=== PATIENT | female | born 1935 | race African-American/Black ===

== ENCOUNTER 2018-10-20 08:11 | Inpatient (IN) | payer OTHER, MEDICAID ==
[~2018-10-20] VITALS: Ht 152.4 cm; Wt 48.5 kg
[2018-10-20 08:11] VITALS: BP_SYST 184
[~2018-10-20 08:11] MED LIST: ALBU17AE26 IH; IPRA30SP NS; LISI-600 PO; VERA240T16 PO
[2018-10-20] MEDS ORDERED: IPRATROPIUM/ALBUTEROL SULFATE 3 ML AMPUL.NEB (DUONEB) INH ONE (08:15)
[2018-10-20] MEDS ORDERED: methylPREDNISolone SOD SUCC/PF 62.5 MG/ML VIAL IVP ONE ×2 (08:15→19:00)
[2018-10-20 08:46] LABS: BASOPHILS % (AUTO) 0.6 % (0.0-2.0); EOSINOPHILS # (AUTO) 0.1 K/uL (0.0-0.4); EOSINOPHILS % (AUTO) 2.3 % (0.0-4.0); HEMATOCRIT 45.2 % (36-48); HEMOGLOBIN 14.4 g/dL (12.0-16.0); LYMPHOCYTES # (AUTO) 1.5 K/uL (1.0-5.5); LYMPHOCYTES % (AUTO) 22.7 % (20.5-51.5); MEAN CORPUSCULAR HEMOGLOBIN 31 pg (27-31); MEAN CORPUSCULAR HGB CONC 32 % (32-36); MEAN CORPUSCULAR VOLUME 96 fL (79.0-98.0); MONOCYTES # (AUTO) 0.4 K/uL (0.0-1.0); MONOCYTES % (AUTO) 6.7 % (1.7-9.3); NEUTROPHILS # (AUTO) 4.3 K/uL (1.8-7.7); NEUTROPHILS % (AUTO) 67.7 % (40.0-70.0); PLATELET COUNT (AUTO) 197 K/uL (130-430); RED BLOOD CELL COUNT(AUTO) 4.71 MIL/uL (4.2-6.2); RED CELL DISTRIBUTION WIDTH 13.8 % (9.0-15.0); WHITE BLOOD COUNT (AUTO) 6.4 K/uL (4.8-10.8)
[2018-10-20 08:59] LABS: ANION GAP 5 (5-15); CALCIUM 9.5 mg/dL (8.4-11.0); CHLORIDE 107 mmol/L (98-107); GLUCOSE 111 mg/dL (70-99); POTASSIUM 3.7 mmol/L (3.5-5.1); SODIUM SERUM 141 mmol/L (136-145); UREA NITROGEN, BLOOD 19 mg/dL (8-21)
[2018-10-20 09:04] LABS: ALANINE AMINOTRANSFERASE 25 U/L (12-78); ALBUMIN 3.2 g/dL (3.4-4.8); ASPARTATE AMINOTRANSFERASE 17 U/L (10-37); TOTAL BILIRUBIN 0.3 mg/dL (0.0-1.0)
[2018-10-20] MEDS ORDERED: IPRA4AER INH (09:05)
[2018-10-20] MEDS ORDERED: KETOROLAC TROMETHAMINE 15 MG VIAL IVP ONE (10:00)
[2018-10-20 11:42] VITALS: BP_SYST 125
[2018-10-20 11:45] VITALS: BP_SYST 125
[2018-10-20 15:53] VITALS: BP_SYST 144
[2018-10-20 19:00] VITALS: BP_SYST 144
[2018-10-20] MEDS ORDERED: IPRATROPIUM BROM 0.5 MG/2.5 ML VIAL.NEB (ATROVENT) INH PRN (19:00)
[2018-10-20] MEDS ORDERED: ALBUTEROL SULFATE 0.083% 2.5 MG/3 ML VIAL.NEB INH PRN (19:00)
[2018-10-20] MEDS: cefTRIAXone 1 GM in D5W 50 ML IV SCH (19:51)
[2018-10-20] MEDS: ALBUTEROL SULFATE 0.083% 2.5 MG/3 ML VIAL.NEB INH SCH (19:53)
[2018-10-20] MEDS: IPRATROPIUM BROM 0.5 MG/2.5 ML VIAL.NEB (ATROVENT) INH SCH (19:54)
[2018-10-20 20:30] VITALS: BP_SYST 141
[2018-10-20] MEDS: AZITHROMYCIN 500 MG in NS 250 ML IV SCH (21:28)
[2018-10-21] MEDS: ALBUTEROL SULFATE 0.083% 2.5 MG/3 ML VIAL.NEB INH SCH ×4 (01:18→20:09)
[2018-10-21] MEDS: IPRATROPIUM BROM 0.5 MG/2.5 ML VIAL.NEB (ATROVENT) INH SCH ×4 (01:18→20:09)
[2018-10-21] MEDS ORDERED: ACETAMINOPHEN 325 MG TABLET PO PRN (01:30)
[2018-10-21] MEDS: cloNIDine HCL 0.1 MG TABLET PO PRN (01:45)
[2018-10-21] MEDS: methylPREDNISolone SOD SUCC/PF 62.5 MG/ML VIAL IVP SCH ×3 (05:29→21:02)
[2018-10-21 05:30] VITALS: BP_SYST 142
[2018-10-21] MEDS: VERAPAMIL HCL 120 MG TABLET.SA PO SCH (09:13)
[2018-10-21] MEDS: LISINOPRIL 20 MG TABLET PO SCH (09:13)
[2018-10-21 10:24] VITALS: BP_SYST 140
[2018-10-21] MEDS ORDERED: ASPIRIN 81 MG TABLET(ECOTRIN) PO ONE (11:30)
[2018-10-21] MEDS ORDERED: NITROGLYCERIN 0.4 MG TAB.SUBL SL PRN (11:30)
[2018-10-21 11:32] VITALS: BP_SYST 139
[2018-10-21 16:05] VITALS: BP_SYST 139
[2018-10-21 20:00] VITALS: BP_SYST 144
[2018-10-21] MEDS: cefTRIAXone 1 GM in D5W 50 ML IV SCH (20:05)
[2018-10-21] MEDS: AZITHROMYCIN 500 MG in NS 250 ML IV SCH (21:01)
[2018-10-21] MEDS: DIAZEPAM 5 MG TABLET (VALIUM) PO SCH (21:02)
[2018-10-22] MEDS: ALBUTEROL SULFATE 0.083% 2.5 MG/3 ML VIAL.NEB INH SCH ×4 (01:30→20:33)
[2018-10-22] MEDS: IPRATROPIUM BROM 0.5 MG/2.5 ML VIAL.NEB (ATROVENT) INH SCH ×4 (01:30→20:34)
[2018-10-22 01:31] VITALS: BP_SYST 151
[2018-10-22] MEDS: methylPREDNISolone SOD SUCC/PF 62.5 MG/ML VIAL IVP SCH ×3 (05:39→20:47)
[2018-10-22 08:20] VITALS: BP_SYST 157
[2018-10-22] MEDS: ASPIRIN 81 MG TAB.CHEW PO SCH (09:30)
[2018-10-22] MEDS: DIAZEPAM 5 MG TABLET (VALIUM) PO SCH ×2 (09:30→20:47)
[2018-10-22] MEDS: LISINOPRIL 20 MG TABLET PO SCH (09:35)
[2018-10-22] MEDS: VERAPAMIL HCL 120 MG TABLET.SA PO SCH (09:37)
[2018-10-22] MEDS: guaiFENesin/DEXTROMETHORPHAN 10 ML UDC PO PRN (12:05)
[2018-10-22] MEDS: traMADol HCL HCL 50 MG TABLET (ULTRAM) PO PRN (12:06)
[2018-10-22 12:15] VITALS: BP_SYST 121
[2018-10-22] MEDS ORDERED: ENOXAPARIN SODIUM 40 MG/0.4 ML SYRINGE SUBCUT ONE (14:00)
[2018-10-22 16:15] VITALS: BP_SYST 135
[2018-10-22 19:25] VITALS: BP_SYST 149
[2018-10-22] MEDS: cefTRIAXone 1 GM in D5W 50 ML IV SCH (20:47)
[2018-10-22] MEDS: AZITHROMYCIN 500 MG in NS 250 ML IV SCH (22:15)
[2018-10-23 00:36] VITALS: BP_SYST 131
[2018-10-23 06:01] LABS: BASOPHILS % (AUTO) 0.1 % (0.0-2.0); HEMATOCRIT 40.8 % (36-48); LYMPHOCYTES # (AUTO) 0.3 K/uL (1.0-5.5); MEAN CORPUSCULAR HEMOGLOBIN 31 pg (27-31); MEAN CORPUSCULAR HGB CONC 32 % (32-36); MEAN CORPUSCULAR VOLUME 96 fL (79.0-98.0); MONOCYTES # (AUTO) 0.1 K/uL (0.0-1.0); MONOCYTES % (AUTO) 0.8 % (1.7-9.3); NEUTROPHILS # (AUTO) 6.8 K/uL (1.8-7.7); NEUTROPHILS % (AUTO) 95.1 % (40.0-70.0); PLATELET COUNT (AUTO) 152 K/uL (130-430); RED BLOOD CELL COUNT(AUTO) 4.25 MIL/uL (4.2-6.2); WHITE BLOOD COUNT (AUTO) 7.1 K/uL (4.8-10.8)
[2018-10-23 06:43] LABS: ALANINE AMINOTRANSFERASE 19 U/L (12-78); ALBUMIN 2.4 g/dL (3.4-4.8); ANION GAP 6 (5-15); ASPARTATE AMINOTRANSFERASE 8 U/L (10-37); CALCIUM 8.7 mg/dL (8.4-11.0); CHLORIDE 106 mmol/L (98-107); CREATININE 0.66 mg/dL (0.55-1.30); GLUCOSE 193 mg/dL (70-99); POTASSIUM 4.7 mmol/L (3.5-5.1); SODIUM SERUM 141 mmol/L (136-145); TOTAL BILIRUBIN 0.2 mg/dL (0.0-1.0); UREA NITROGEN, BLOOD 30 mg/dL (8-21)
[2018-10-23 07:50] LABS: CHOLESTEROL 184 mg/dL (<200); TRIGLYCERIDES 48 mg/dL (30-150)
[2018-10-23 07:51] LABS: HDL CHOLESTEROL 91 mg/dL (>55); LDL CHOLESTEROL 71 mg/dL (<100)
[2018-10-23] MEDS: methylPREDNISolone SOD SUCC/PF 62.5 MG/ML VIAL IVP SCH ×2 (08:57→21:22)
[2018-10-23] MEDS: ENOXAPARIN SODIUM 40 MG/0.4 ML SYRINGE SUBCUT SCH (08:59)
[2018-10-23] MEDS: DIAZEPAM 5 MG TABLET (VALIUM) PO SCH ×2 (08:59→21:23)
[2018-10-23] MEDS: ASPIRIN 81 MG TAB.CHEW PO SCH (08:59)
[2018-10-23] MEDS: LISINOPRIL 20 MG TABLET PO SCH (09:00)
[2018-10-23] MEDS: VERAPAMIL HCL 120 MG TABLET.SA PO SCH (09:02)
[2018-10-23 09:08] VITALS: BP_SYST 158
[2018-10-23 11:27] VITALS: BP_SYST 132
[2018-10-23] MEDS: guaiFENesin/DEXTROMETHORPHAN 10 ML UDC PO PRN (12:46)
[2018-10-23 15:24] VITALS: BP_SYST 127
[2018-10-23] MEDS: ALBUTEROL SULFATE 0.083% 2.5 MG/3 ML VIAL.NEB INH SCH (18:55)
[2018-10-23] MEDS: IPRATROPIUM BROM 0.5 MG/2.5 ML VIAL.NEB (ATROVENT) INH SCH (18:55)
[2018-10-23 19:00] VITALS: BP_SYST 147
[2018-10-23 20:00] VITALS: BP_SYST 147
[2018-10-23] MEDS: cefTRIAXone 1 GM in D5W 50 ML IV SCH (21:20)
[2018-10-23] MEDS: AZITHROMYCIN 500 MG in NS 250 ML IV SCH (21:22)
[2018-10-24] MEDS: traMADol HCL HCL 50 MG TABLET (ULTRAM) PO PRN
[2018-10-24 00:42] VITALS: BP_SYST 133
[2018-10-24] MEDS: IPRATROPIUM BROM 0.5 MG/2.5 ML VIAL.NEB (ATROVENT) INH SCH ×3 (00:52→14:26)
[2018-10-24] MEDS: ALBUTEROL SULFATE 0.083% 2.5 MG/3 ML VIAL.NEB INH SCH ×3 (00:52→14:26)
[2018-10-24 08:00] VITALS: BP_SYST 184
[2018-10-24] MEDS: ASPIRIN 81 MG TAB.CHEW PO SCH (09:04)
[2018-10-24] MEDS: methylPREDNISolone SOD SUCC/PF 62.5 MG/ML VIAL IVP SCH (09:04)
[2018-10-24] MEDS: VERAPAMIL HCL 120 MG TABLET.SA PO SCH (09:04)
[2018-10-24] MEDS: cloNIDine HCL 0.1 MG TABLET PO PRN (09:05)
[2018-10-24] MEDS: LISINOPRIL 20 MG TABLET PO SCH (09:05)
[2018-10-24] MEDS: DIAZEPAM 5 MG TABLET (VALIUM) PO SCH (09:05)
[2018-10-24] MEDS: ENOXAPARIN SODIUM 40 MG/0.4 ML SYRINGE SUBCUT SCH (09:12)
[2018-10-24 10:40] VITALS: BP_SYST 138
[2018-10-24 11:27] VITALS: BP_SYST 112
[2018-10-24 14:13] VITALS: BP_SYST 135
[2018-10-24 16:00] VITALS: BP_SYST 131
[2018-10-24] MEDS ORDERED: PREDNISONE 20 MG TABLET PO SCH (21:00)
== END 2018-10-24 16:40 | DRG 189 ==
LOC: SED 08:11 → SMU 10:40
PROVIDERS: ADMIT Internal Medicine Hospice and Palliative Medicine; ATTEND Internal Medicine Hospice and Palliative Medicine
DX: J96.02 Acute respiratory failure with hypercapnia (principal); J44.1 Chronic obstructive pulmonary disease with (acute) exacerbation; E44.0 Moderate protein-calorie malnutrition; I11.0 Hypertensive heart disease with heart failure; F41.9 Anxiety disorder, unspecified; I50.9 Heart failure, unspecified; F31.9 Bipolar disorder, unspecified; G89.4 Chronic pain syndrome; F17.210 Nicotine dependence, cigarettes, uncomplicated; T59.811A Toxic effect of smoke, accidental (unintentional), initial encounter; J70.5 Respiratory conditions due to smoke inhalation; Y92.89 Other specified places as the place of occurrence of the external cause; Z86.73 Personal history of transient ischemic attack (TIA), and cerebral infarction without residual deficits; Z90.710 Acquired absence of both cervix and uterus; Z88.5 Allergy status to narcotic agent; Z79.899 Other long term (current) drug therapy; Z68.20 Body mass index [BMI] 20.0-20.9, adult
CPT/HCPCS: 36415; 36600; 71045; 80053; 80061; 82550-TC; 82803-TC; 84484; 85025; 87081; 93005; 94640; 94760; 96374; 96375; 97110-GP; 97530-GP; 99291; J0456; J0696; J1650; J1885; J2930; J7050; J7060; J7613; J7620

== ENCOUNTER 2018-10-30 17:07 | Inpatient (IN) | payer OTHER, MEDICAID ==
[~2018-10-30] VITALS: Ht 149.9 cm; Wt 53.5 kg
[~2018-10-30 17:07] MED LIST changes: +IPRA4AER INH
[2018-10-30 17:13] VITALS: BP_SYST 132
[2018-10-30] MEDS ORDERED: ASPIRIN 81 MG TAB.CHEW PO ONE (17:30)
[2018-10-30 17:52] LABS: BASOPHILS % (AUTO) 0.2 % (0.0-2.0); HEMATOCRIT 41.9 % (36-48); HEMOGLOBIN 13.3 g/dL (12.0-16.0); LYMPHOCYTES # (AUTO) 0.9 K/uL (1.0-5.5); LYMPHOCYTES % (AUTO) 8.8 % (20.5-51.5); MEAN CORPUSCULAR HEMOGLOBIN 30 pg (27-31); MEAN CORPUSCULAR HGB CONC 32 % (32-36); MEAN CORPUSCULAR VOLUME 95 fL (79.0-98.0); MONOCYTES # (AUTO) 0.6 K/uL (0.0-1.0); MONOCYTES % (AUTO) 5.7 % (1.7-9.3); NEUTROPHILS # (AUTO) 8.6 K/uL (1.8-7.7); NEUTROPHILS % (AUTO) 85.3 % (40.0-70.0); PLATELET COUNT (AUTO) 235 K/uL (130-430); RED BLOOD CELL COUNT(AUTO) 4.39 MIL/uL (4.2-6.2); WHITE BLOOD COUNT (AUTO) 10.1 K/uL (4.8-10.8)
[2018-10-30 17:59] LABS: ANION GAP 4 (5-15); CALCIUM 9.3 mg/dL (8.4-11.0); CHLORIDE 100 mmol/L (98-107); CREATININE 0.69 mg/dL (0.55-1.30); GLUCOSE 142 mg/dL (70-99); POTASSIUM 4.8 mmol/L (3.5-5.1); SODIUM SERUM 135 mmol/L (136-145); UREA NITROGEN, BLOOD 28 mg/dL (8-21)
[2018-10-30 18:07] LABS: ALANINE AMINOTRANSFERASE 32 U/L (12-78); ALBUMIN 2.7 g/dL (3.4-4.8); ASPARTATE AMINOTRANSFERASE 9 U/L (10-37); TOTAL BILIRUBIN 0.2 mg/dL (0.0-1.0)
[2018-10-30] MEDS ORDERED: IPRATROPIUM/ALBUTEROL SULFATE 3 ML AMPUL.NEB (DUONEB) INH ONE (20:00)
[2018-10-30] MEDS ORDERED: DIAZ10TA PO (20:24)
[2018-10-30 21:09] VITALS: BP_SYST 147
[2018-10-30 21:30] VITALS: BP_SYST 147
[2018-10-30] MEDS ORDERED: ONDANSETRON HCL 4 MG/2 ML VIAL IVP PRN (21:30)
[2018-10-30] MEDS ORDERED: ALBUTEROL SULFATE 0.083% 2.5 MG/3 ML VIAL.NEB INH PRN (21:30)
[2018-10-30] MEDS ORDERED: ACETAMINOPHEN 325 MG TABLET PO PRN (21:30)
[2018-10-31 00:49] VITALS: BP_SYST 163
[2018-10-31 06:23] LABS: BASOPHILS % (AUTO) 0.1 % (0.0-2.0); EOSINOPHILS % (AUTO) 0.5 % (0.0-4.0); HEMOGLOBIN 13.3 g/dL (12.0-16.0); LYMPHOCYTES % (AUTO) 24.8 % (20.5-51.5); MEAN CORPUSCULAR HEMOGLOBIN 31 pg (27-31); MEAN CORPUSCULAR HGB CONC 32 % (32-36); MEAN CORPUSCULAR VOLUME 96 fL (79.0-98.0); MONOCYTES # (AUTO) 0.7 K/uL (0.0-1.0); MONOCYTES % (AUTO) 8.6 % (1.7-9.3); NEUTROPHILS # (AUTO) 5.3 K/uL (1.8-7.7); PLATELET COUNT (AUTO) 225 K/uL (130-430); RED BLOOD CELL COUNT(AUTO) 4.35 MIL/uL (4.2-6.2); RED CELL DISTRIBUTION WIDTH 14.3 % (9.0-15.0)
[2018-10-31 06:56] LABS: ALANINE AMINOTRANSFERASE 35 U/L (12-78); ALBUMIN 2.5 g/dL (3.4-4.8); ANION GAP 5 (5-15); CALCIUM 9.1 mg/dL (8.4-11.0); CHLORIDE 104 mmol/L (98-107); CREATININE 0.51 mg/dL (0.55-1.30); GLUCOSE 97 mg/dL (70-99); POTASSIUM 4.3 mmol/L (3.5-5.1); SODIUM SERUM 141 mmol/L (136-145); TOTAL BILIRUBIN 0.3 mg/dL (0.0-1.0); UREA NITROGEN, BLOOD 23 mg/dL (8-21)
[2018-10-31 07:19] LABS: ASPARTATE AMINOTRANSFERASE 16 U/L (10-37)
[2018-10-31 08:10] VITALS: BP_SYST 156; BP_SYST 171
[2018-10-31 08:11] LABS: HDL CHOLESTEROL 104 mg/dL (>55); TRIGLYCERIDES 47 mg/dL (30-150)
[2018-10-31 08:12] LABS: CHOLESTEROL 183 mg/dL (<200); LDL CHOLESTEROL 66 mg/dL (<100)
[2018-10-31] MEDS: ASPIRIN 81 MG TAB.CHEW PO SCH (09:23)
[2018-10-31] MEDS: LISINOPRIL 20 MG TABLET PO SCH (09:23)
[2018-10-31] MEDS: DIAZEPAM 5 MG TABLET (VALIUM) PO SCH ×3 (09:23→21:17)
[2018-10-31 11:26] VITALS: BP_SYST 154
[2018-10-31 15:58] VITALS: BP_SYST 141
[2018-10-31 19:50] VITALS: BP_SYST 149
[2018-11-01 00:12] VITALS: BP_SYST 142
[2018-11-01] MEDS ORDERED: HYDROcodone/ACETAMIN 10-325 MG TAB PO ONE (01:00)
[2018-11-01] MEDS ORDERED: hydrALAZINE HCL 25 MG TABLET PO PRN (01:00)
[2018-11-01 07:57] VITALS: BP_SYST 161
[2018-11-01] MEDS: ASPIRIN 81 MG TAB.CHEW PO SCH (08:17)
[2018-11-01] MEDS: DIAZEPAM 5 MG TABLET (VALIUM) PO SCH ×3 (08:18→19:42)
[2018-11-01] MEDS: LISINOPRIL 20 MG TABLET PO SCH (08:18)
[2018-11-01 11:22] VITALS: BP_SYST 142
[2018-11-01 12:47] VITALS: BP_SYST 142
[2018-11-01 16:19] VITALS: BP_SYST 144
[2018-11-01 19:15] VITALS: BP_SYST 122
[2018-11-02 02:00] VITALS: BP_SYST 140
== END 2018-11-02 02:15 | DRG 313 ==
LOC: SED 17:07 → STU 20:17
PROVIDERS: ADMIT Internal Medicine; ATTEND Internal Medicine
DX: R07.89 Other chest pain (principal); E43 Unspecified severe protein-calorie malnutrition; E87.1 Hypo-osmolality and hyponatremia; F17.210 Nicotine dependence, cigarettes, uncomplicated; F31.9 Bipolar disorder, unspecified; I11.0 Hypertensive heart disease with heart failure; F41.9 Anxiety disorder, unspecified; I50.9 Heart failure, unspecified; J44.9 Chronic obstructive pulmonary disease, unspecified; Z82.49 Family history of ischemic heart disease and other diseases of the circulatory system; Z88.5 Allergy status to narcotic agent; Z90.710 Acquired absence of both cervix and uterus; Z99.81 Dependence on supplemental oxygen; Z59.0 Homelessness; Z79.899 Other long term (current) drug therapy; Z68.23 Body mass index [BMI] 23.0-23.9, adult
CPT/HCPCS: 36415; 71045; 80053; 80061; 83880; 84484; 85025; 87081; 93005; 93306; 99285; G0378; J7620

== ENCOUNTER 2019-10-08 21:51 | Inpatient (IN) | payer OTHER, MEDICAID, SELFPAY ==
[~2019-10-08] VITALS: Ht 149.9 cm; Wt 51.3 kg
[~2019-10-08 21:51] MED LIST changes: +DIAZ10TA PO; -VERA240T16 PO
[2019-10-08 22:19] VITALS: BP_SYST 148
[2019-10-09 00:26] LABS: BASOPHILS # (AUTO) 0.3 K/uL (0.0-0.2); BASOPHILS % (AUTO) 4.5 % (0.0-2.0); EOSINOPHILS # (AUTO) 0.2 K/uL (0.0-0.4); EOSINOPHILS % (AUTO) 3.6 % (0.0-4.0); HEMATOCRIT 44.7 % (36-48); MEAN CORPUSCULAR HEMOGLOBIN 29 pg (27-31); MEAN CORPUSCULAR HGB CONC 31 % (32-36); MEAN CORPUSCULAR VOLUME 94 fL (79.0-98.0); MONOCYTES # (AUTO) 0.4 K/uL (0.0-1.0); MONOCYTES % (AUTO) 7.8 % (1.7-9.3); NEUTROPHILS # (AUTO) 3.8 K/uL (1.8-7.7); NEUTROPHILS % (AUTO) 66.1 % (40.0-70.0); PLATELET COUNT (AUTO) 191 K/uL (130-430); RED BLOOD CELL COUNT(AUTO) 4.77 MIL/uL (4.2-6.2); RED CELL DISTRIBUTION WIDTH 14.6 % (9.0-15.0); WHITE BLOOD COUNT (AUTO) 5.7 K/uL (4.8-10.8)
[2019-10-09 00:35] LABS: ANION GAP 4 (5-15); CALCIUM 8.7 mg/dL (8.4-11.0); CHLORIDE 105 mmol/L (98-107); CREATININE 0.65 mg/dL (0.55-1.30); GLUCOSE 91 mg/dL (70-99); POTASSIUM 3.5 mmol/L (3.5-5.1); SODIUM SERUM 145 mmol/L (136-145); UREA NITROGEN, BLOOD 19 mg/dL (8-21)
[2019-10-09 00:43] LABS: ALANINE AMINOTRANSFERASE 40 U/L (12-78); ALBUMIN 3.3 g/dL (3.4-4.8); ASPARTATE AMINOTRANSFERASE 32 U/L (10-37); TOTAL BILIRUBIN 0.5 mg/dL (0.0-1.0)
[2019-10-09] MEDS ORDERED: AZITHROMYCIN 500 MG in NS 250 ML IV ONE (04:15)
[2019-10-09] MEDS ORDERED: cefTRIAXone 1 GM in D5W 50 ML IV ONE (04:15)
[2019-10-09] MEDS ORDERED: cefTRIAXone 1 GM VIAL ONE (04:39)
[2019-10-09] MEDS ORDERED: AZITHROMYCIN 500 MG/VIAL (ZITHROMAX) IV ONE (04:39)
[2019-10-09 05:55] VITALS: BP_SYST 169
[2019-10-09] MEDS ORDERED: ZOLPIDEM TARTRATE 5 MG TABLET PO PRN (07:45)
[2019-10-09] MEDS ORDERED: DOCUSATE SODIUM 100 MG CAPSULE PO PRN (07:45)
[2019-10-09] MEDS ORDERED: MUPIROCIN 2% TOPICAL OINTMENT 22 GM NS PRN (07:45)
[2019-10-09] MEDS ORDERED: LORazepam 2 MG/ML VIAL IVP PRN (07:45)
[2019-10-09] MEDS ORDERED: POTASSIUM CHLORIDE 20 MEQ TAB.PRT.SR PO PRN (07:45)
[2019-10-09] MEDS ORDERED: NACL 0.9% 1,000 ML IV SCH (07:45)
[2019-10-09] MEDS ORDERED: ONDANSETRON HCL 4 MG/2 ML VIAL IVP PRN (07:45)
[2019-10-09] MEDS ORDERED: MAGNESIUM SULFATE 50 ML IV PRN (07:45)
[2019-10-09 08:00] VITALS: BP_SYST 138
[2019-10-09] MEDS ORDERED: IPRATROPIUM/ALBUTEROL SULFATE 3 ML AMPUL.NEB (DUONEB) INH ONE (08:00)
[2019-10-09] MEDS: FUROSEMIDE 20 MG/2 ML VIAL IVP SCH (08:30)
[2019-10-09] MEDS: HEPARIN SODIUM,PORCINE 5000 UNITS/ML VIAL SUBCUT SCH ×2 (09:21→21:33)
[2019-10-09] MEDS: METOPROLOL TARTRATE 25 MG TABLET PO SCH ×2 (09:22→21:32)
[2019-10-09] MEDS: PREDNISONE 20 MG TABLET PO SCH ×2 (09:23→21:31)
[2019-10-09 11:20] VITALS: BP_SYST 138
[2019-10-09 12:00] VITALS: BP_SYST 144
[2019-10-09] MEDS: IPRATROPIUM/ALBUTEROL SULFATE 3 ML AMPUL.NEB (DUONEB) INH SCH ×2 (15:12→20:31)
[2019-10-09] MEDS: guaiFENesin/DEXTROMETHORPHAN 10 ML UDC PO PRN (16:20)
[2019-10-09 16:30] VITALS: BP_SYST 141
[2019-10-09 21:10] VITALS: BP_SYST 158
[2019-10-10] VITALS (7 sets, daily range): BP systolic 136–153
[2019-10-10] MEDS: cefTRIAXone 1 GM IVPB PREMIX 50 ML IV SCH (04:12)
[2019-10-10] MEDS: ACETAMINOPHEN 325 MG TABLET PO PRN ×2 (05:53→17:14)
[2019-10-10 06:30] LABS: BASOPHILS % (AUTO) 0.5 % (0.0-2.0); HEMATOCRIT 44.1 % (36-48); HEMOGLOBIN 13.4 g/dL (12.0-16.0); LYMPHOCYTES # (AUTO) 0.3 K/uL (1.0-5.5); LYMPHOCYTES % (AUTO) 10.3 % (20.5-51.5); MEAN CORPUSCULAR HEMOGLOBIN 29 pg (27-31); MEAN CORPUSCULAR HGB CONC 30 % (32-36); MEAN CORPUSCULAR VOLUME 96 fL (79.0-98.0); MONOCYTES # (AUTO) 0.1 K/uL (0.0-1.0); MONOCYTES % (AUTO) 2.8 % (1.7-9.3); NEUTROPHILS # (AUTO) 2.9 K/uL (1.8-7.7); NEUTROPHILS % (AUTO) 86.4 % (40.0-70.0); PLATELET COUNT (AUTO) 171 K/uL (130-430); RED BLOOD CELL COUNT(AUTO) 4.62 MIL/uL (4.2-6.2); RED CELL DISTRIBUTION WIDTH 14.9 % (9.0-15.0); WHITE BLOOD COUNT (AUTO) 3.4 K/uL (4.8-10.8)
[2019-10-10 06:56] LABS: ALANINE AMINOTRANSFERASE 38 U/L (12-78); ALBUMIN 2.7 g/dL (3.4-4.8); ANION GAP 3 (5-15); ASPARTATE AMINOTRANSFERASE 29 U/L (10-37); CALCIUM 8.3 mg/dL (8.4-11.0); CHLORIDE 102 mmol/L (98-107); CHOLESTEROL 117 mg/dL (<200); CREATININE 0.68 mg/dL (0.55-1.30); GLUCOSE 206 mg/dL (70-99); HDL CHOLESTEROL 66 mg/dL (>55); LDL CHOLESTEROL 43 mg/dL (<100); POTASSIUM 4.1 mmol/L (3.5-5.1); SODIUM SERUM 140 mmol/L (136-145); THYROID STIMULATING HORMONE < 0.01 uIu/mL (0.34-4.82); TOTAL BILIRUBIN 0.4 mg/dL (0.0-1.0); TRIGLYCERIDES 62 mg/dL (30-150); UREA NITROGEN, BLOOD 24 mg/dL (8-21)
[2019-10-10] MEDS: IPRATROPIUM/ALBUTEROL SULFATE 3 ML AMPUL.NEB (DUONEB) INH SCH ×3 (08:01→21:45)
[2019-10-10] MEDS: FUROSEMIDE 20 MG/2 ML VIAL IVP SCH (09:04)
[2019-10-10] MEDS: METOPROLOL TARTRATE 25 MG TABLET PO SCH ×2 (09:04→20:14)
[2019-10-10] MEDS: AZITHROMYCIN 250 MG TABLET PO SCH (09:05)
[2019-10-10] MEDS: PREDNISONE 20 MG TABLET PO SCH ×2 (09:05→20:15)
[2019-10-10] MEDS: HEPARIN SODIUM,PORCINE 5000 UNITS/ML VIAL SUBCUT SCH ×2 (09:11→20:16)
[2019-10-10] MEDS: DIAZEPAM 5 MG TABLET (VALIUM) PO PRN ×2 (09:49→20:23)
[2019-10-10] MEDS ORDERED: KETOROLAC TROMETHAMINE 15 MG VIAL IM PRN (10:00)
[2019-10-10 11:11] LABS: BILIRUBIN,URINE NEGATIVE (NEGATIVE); BLOOD, URINE 1+ (NEGATIVE); CLARITY/URINE CLEAR (CLEAR); COLOR,URINE YELLOW (YELLOW); GLUCOSE,URINE NEGATIVE (NEGATIVE); KETONES,URINE NEGATIVE (NEGATIVE); LEUKOCYTE ESTERASE ,URINE NEGATIVE (NEGATIVE); NITRITE, URINE NEGATIVE (NEGATIVE); PH,URINE 5.5 (5.0-8.0); PROTEIN URINE NEGATIVE (NEGATIVE); UROBILINOGEN,URINE 0.2 (0.2-1.0)
[2019-10-10 11:15] LABS: BACTERIA,URINE FEW /HPF (None Seen); RBC,URINE 0-3 /HPF (0-3); WBC,URINE 0-3 /HPF (0-3)
[2019-10-11 00:38] VITALS: BP_SYST 144
[2019-10-11] MEDS: guaiFENesin/DEXTROMETHORPHAN 10 ML UDC PO PRN (01:06)
[2019-10-11] MEDS: cefTRIAXone 1 GM IVPB PREMIX 50 ML IV SCH ×2 (04:30→05:34)
[2019-10-11] MEDS: IPRATROPIUM/ALBUTEROL SULFATE 3 ML AMPUL.NEB (DUONEB) INH SCH ×3 (07:18→23:29)
[2019-10-11 07:45] LABS: ANION GAP -2 (5-15); CALCIUM 8.6 mg/dL (8.4-11.0); CHLORIDE 101 mmol/L (98-107); CREATININE 0.76 mg/dL (0.55-1.30); GLUCOSE 237 mg/dL (70-99); POTASSIUM 3.7 mmol/L (3.5-5.1); SODIUM SERUM 138 mmol/L (136-145); UREA NITROGEN, BLOOD 21 mg/dL (8-21)
[2019-10-11 08:00] VITALS: BP_SYST 169
[2019-10-11 08:01] LABS: BASOPHILS % (AUTO) 0.3 % (0.0-2.0); HEMATOCRIT 44.3 % (36-48); HEMOGLOBIN 13.6 g/dL (12.0-16.0); LYMPHOCYTES # (AUTO) 0.5 K/uL (1.0-5.5); LYMPHOCYTES % (AUTO) 12.7 % (20.5-51.5); MEAN CORPUSCULAR HEMOGLOBIN 29 pg (27-31); MEAN CORPUSCULAR HGB CONC 31 % (32-36); MEAN CORPUSCULAR VOLUME 94 fL (79.0-98.0); MONOCYTES # (AUTO) 0.4 K/uL (0.0-1.0); MONOCYTES % (AUTO) 8.7 % (1.7-9.3); NEUTROPHILS # (AUTO) 3.3 K/uL (1.8-7.7); NEUTROPHILS % (AUTO) 78.3 % (40.0-70.0); PLATELET COUNT (AUTO) 160 K/uL (130-430); RED BLOOD CELL COUNT(AUTO) 4.71 MIL/uL (4.2-6.2); RED CELL DISTRIBUTION WIDTH 14.2 % (9.0-15.0); WHITE BLOOD COUNT (AUTO) 4.2 K/uL (4.8-10.8)
[2019-10-11] MEDS: FUROSEMIDE 20 MG/2 ML VIAL IVP SCH (08:50)
[2019-10-11] MEDS: AZITHROMYCIN 250 MG TABLET PO SCH (08:51)
[2019-10-11] MEDS: DIAZEPAM 5 MG TABLET (VALIUM) PO PRN (08:51)
[2019-10-11] MEDS: PREDNISONE 20 MG TABLET PO SCH ×2 (08:52→20:38)
[2019-10-11] MEDS: METOPROLOL TARTRATE 25 MG TABLET PO SCH ×2 (08:52→20:38)
[2019-10-11] MEDS: HEPARIN SODIUM,PORCINE 5000 UNITS/ML VIAL SUBCUT SCH ×2 (08:53→20:39)
[2019-10-11] MEDS: KETOROLAC TROMETHAMINE 15 MG VIAL IVP PRN ×2 (11:28→18:35)
[2019-10-11 12:42] VITALS: BP_SYST 163
[2019-10-11 16:35] VITALS: BP_SYST 161
[2019-10-12 00:46] VITALS: BP_SYST 182
[2019-10-12] MEDS: cefTRIAXone 1 GM IVPB PREMIX 50 ML IV SCH (06:01)
[2019-10-12 06:54] LABS: BASOPHILS % (AUTO) 0.3 % (0.0-2.0); HEMATOCRIT 46.5 % (36-48); HEMOGLOBIN 14.4 g/dL (12.0-16.0); LYMPHOCYTES # (AUTO) 0.7 K/uL (1.0-5.5); LYMPHOCYTES % (AUTO) 14.4 % (20.5-51.5); MEAN CORPUSCULAR HEMOGLOBIN 29 pg (27-31); MEAN CORPUSCULAR HGB CONC 31 % (32-36); MEAN CORPUSCULAR VOLUME 94 fL (79.0-98.0); MONOCYTES # (AUTO) 0.4 K/uL (0.0-1.0); MONOCYTES % (AUTO) 7.5 % (1.7-9.3); NEUTROPHILS # (AUTO) 3.7 K/uL (1.8-7.7); NEUTROPHILS % (AUTO) 77.8 % (40.0-70.0); PLATELET COUNT (AUTO) 182 K/uL (130-430); RED BLOOD CELL COUNT(AUTO) 4.97 MIL/uL (4.2-6.2); RED CELL DISTRIBUTION WIDTH 14.8 % (9.0-15.0); WHITE BLOOD COUNT (AUTO) 4.8 K/uL (4.8-10.8)
[2019-10-12] MEDS: IPRATROPIUM/ALBUTEROL SULFATE 3 ML AMPUL.NEB (DUONEB) INH SCH ×2 (07:07→15:28)
[2019-10-12 07:18] LABS: ANION GAP 1 (5-15); CALCIUM 8.9 mg/dL (8.4-11.0); CHLORIDE 103 mmol/L (98-107); CREATININE 0.67 mg/dL (0.55-1.30); GLUCOSE 185 mg/dL (70-99); POTASSIUM 4.3 mmol/L (3.5-5.1); SODIUM SERUM 141 mmol/L (136-145); UREA NITROGEN, BLOOD 23 mg/dL (8-21)
[2019-10-12 08:00] VITALS: BP_SYST 170
[2019-10-12] MEDS: AZITHROMYCIN 250 MG TABLET PO SCH (08:50)
[2019-10-12] MEDS: PREDNISONE 20 MG TABLET PO SCH (08:50)
[2019-10-12] MEDS: METOPROLOL TARTRATE 25 MG TABLET PO SCH (08:51)
[2019-10-12] MEDS: HEPARIN SODIUM,PORCINE 5000 UNITS/ML VIAL SUBCUT SCH (08:56)
[2019-10-12] MEDS ORDERED: FUROSEMIDE 40 MG TABLET PO SCH (09:00)
[2019-10-12] MEDS: KETOROLAC TROMETHAMINE 15 MG VIAL IVP PRN (09:02)
[2019-10-12 12:00] VITALS: BP_SYST 148
[2019-10-12] MEDS ORDERED: AZIT250T PO (13:33)
[2019-10-12] MEDS ORDERED: METO-442 PO (13:33)
[2019-10-12] MEDS ORDERED: PRED10TA PO (13:33)
[2019-10-12] MEDS ORDERED: cloNIDine HCL 0.1 MG TABLET PO PRN (13:45)
[2019-10-12] MEDS ORDERED: LISINOPRIL 10 MG TABLET (PRINIVIL) PO ONE (13:45)
[2019-10-12 16:00] VITALS: BP_SYST 145
[2019-10-12 16:58] VITALS: BP_SYST 93
== END 2019-10-12 17:55 | disposition home health service (06) | DRG 193 ==
LOC: SED 21:51 → EEVIPCON 10-09 04:29 → SMU 10-09 04:29
PROVIDERS: ADMIT General Practice; ATTEND General Practice
DX: J18.9 Pneumonia, unspecified organism (principal); J96.22 Acute and chronic respiratory failure with hypercapnia; J96.21 Acute and chronic respiratory failure with hypoxia; J44.1 Chronic obstructive pulmonary disease with (acute) exacerbation; R65.10 Systemic inflammatory response syndrome (SIRS) of non-infectious origin without acute organ dysfunction; J44.0 Chronic obstructive pulmonary disease with (acute) lower respiratory infection; E05.90 Thyrotoxicosis, unspecified without thyrotoxic crisis or storm; I25.10 Atherosclerotic heart disease of native coronary artery without angina pectoris; F17.210 Nicotine dependence, cigarettes, uncomplicated; I27.81 Cor pulmonale (chronic); I10 Essential (primary) hypertension; F32.9 Major depressive disorder, single episode, unspecified; G89.4 Chronic pain syndrome; F41.1 Generalized anxiety disorder; Z03.818 Encounter for observation for suspected exposure to other biological agents ruled out; I25.2 Old myocardial infarction; Z86.73 Personal history of transient ischemic attack (TIA), and cerebral infarction without residual deficits; Z90.710 Acquired absence of both cervix and uterus; Z88.0 Allergy status to penicillin; Z79.899 Other long term (current) drug therapy; Z88.5 Allergy status to narcotic agent
CPT/HCPCS: 36415; 36600; 71045; 80048; 80053; 80061; 81000-TC; 82803-TC; 83036; 83735-TC; 83880; 84439; 84443-TC; 84484; 85025; 87040-TC; 93005; 93971; 94640; 94660; 94760; 96365; 96367; 99285; J0456; J0696; J1644; J1885; J1940; J2060; J3475; J7030; J7512; Q0144; U0003-CS

== ENCOUNTER 2020-12-26 18:43 | Inpatient (IN) | payer OTHER, MEDICAID, SELFPAY ==
[~2020-12-26] VITALS: Ht 162.6 cm; Wt 54.0 kg
[~2020-12-26 18:43] MED LIST changes: -LISI-600 PO; +METO-442 PO; +PRED10TA PO; +ZIT250 PO
[2020-12-26 18:46] VITALS: BP_SYST 130
--- NOTE | 2020-12-26 18:46 | NUR ---
Patient to ER bed 06 to gown for evaluation. Side rails up.
--- NOTE | 2020-12-26 18:58 | NUR ---
ER DR. BRENNAN AT THE BEDSIDE EXAMINING PT
[2020-12-26] MEDS ORDERED: ASPIRIN 81 MG TAB.CHEW PO ONE (19:00)
--- NOTE | 2020-12-26 19:05 | NUR ---
PT BIBA FOR SOB, PER EMS PT O2 SAT IN 70S. GIVEN BREATHING TREATMENT IN ROUTE, UPON ARRIVAL PT IN MID HIGH 80'S OTHER V/S STABLE. PT REPORTS HX OF COPD. PT PLACED ON NC 3L, OW 94-95%. PT IS AAOX4.
--- NOTE | 2020-12-26 19:10 | NUR ---
# 20 gauge angiocath placed to LAC. Use of asceptic technique. Opsite placed over site. Blood return noted. Blood for lab drawn from site. Flushed with 10 cc of normal saline. No evidence of infiltration noted. Patient tolerated well.
--- NOTE | 2020-12-26 19:23 | NUR ---
Report received from VENU Bunch for continuation of care.
--- NOTE | 2020-12-26 19:25 | NUR ---
Assumed total care of patient. Patient is AAO x4 from home c/o shortness of breath starting earlier today and worsening. Patient on 4L Nasal Cannula with O2 saturation of 94%. Patient denies fever, chills, nausea, vomiting, chest pain. Patient on radiation monitor, breathing even and unlabored, VSS, no signs of acute distress noted. Patient sitting upright in gurney with head of bed elevated. Patient IV site patent with no signs of infiltration. Patient requesting ice chips and a meal to eat. Will continue to monitor.
[2020-12-26 19:26] LABS: BASOPHILS # (AUTO) 0.1 K/uL (0.0-0.2); BASOPHILS % (AUTO) 0.7 % (0.0-2.0); EOSINOPHILS % (AUTO) 0.3 % (0.0-4.0); HEMATOCRIT 40.3 % (36-48); HEMOGLOBIN 12.7 g/dL (12.0-16.0); LYMPHOCYTES # (AUTO) 2.2 K/uL (1.0-5.5); LYMPHOCYTES % (AUTO) 31.6 % (20.5-51.5); MEAN CORPUSCULAR HEMOGLOBIN 31 pg (27-31); MEAN CORPUSCULAR HGB CONC 31 % (32-36); MEAN CORPUSCULAR VOLUME 97 fL (79.0-98.0); MONOCYTES # (AUTO) 0.9 K/uL (0.0-1.0); MONOCYTES % (AUTO) 12.2 % (1.7-9.3); NEUTROPHILS # (AUTO) 3.9 K/uL (1.8-7.7); NEUTROPHILS % (AUTO) 55.2 % (40.0-70.0); PLATELET COUNT (AUTO) 194 K/uL (130-430); RED BLOOD CELL COUNT(AUTO) 4.14 MIL/uL (4.2-6.2); RED CELL DISTRIBUTION WIDTH 13.9 % (9.0-15.0)
--- NOTE | 2020-12-26 20:00 | NUR ---
EMT tech at bedside to perform EKG.
[2020-12-26 20:01] LABS: ALANINE AMINOTRANSFERASE 19 U/L (12-78); ALBUMIN 3.4 g/dL (3.4-4.8); ASPARTATE AMINOTRANSFERASE 16 U/L (10-37); CHLORIDE 105 mmol/L (98-107); CREATININE 1.06 mg/dL (0.55-1.30); GLUCOSE 108 mg/dL (70-99); LACTATE DEHYDROGENASE 175 U/L (81-234); POTASSIUM 3.3 mmol/L (3.5-5.1); SODIUM SERUM 145 mmol/L (136-145); TOTAL BILIRUBIN 0.3 mg/dL (0.0-1.0); UREA NITROGEN, BLOOD 34 mg/dL (8-21)
[2020-12-26 20:05] LABS: INR 1.1 (0.8-1.2); PROTHROMBIN TIME 11.1 SECS (9.5-12.5)
[2020-12-26 20:11] LABS: ANION GAP 3 (5-15)
[2020-12-26] MEDS ORDERED: cefTRIAXone 1 GM IVPB PREMIX 50 ML IV ONE (20:15)
[2020-12-26] MEDS ORDERED: NACL 0.9% 1,000 ML IV ONE (20:15)
[2020-12-26] MEDS ORDERED: AZITHROMYCIN 500 MG in NS 250 ML IV ONE (20:15)
[2020-12-26 20:23] LABS: C-REACTIVE PROTEIN QUANT 0.7 mg/dL (0-0.5)
--- NOTE | 2020-12-26 20:26 | NUR ---
Blood cultures drawn, prior to administration of antibiotic.
[2020-12-26] MEDS ORDERED: AZITHROMYCIN 500 MG/VIAL (ZITHROMAX) IV ONE (21:08)
[2020-12-26] MEDS ORDERED: IRBE150T48 PO (21:21)
[2020-12-26] MEDS ORDERED: SPIRIVA INH (21:21)
[2020-12-26] MEDS ORDERED: BUDE6HFA INH (21:22)
[2020-12-26] MEDS ORDERED: DIA250 PO (21:22)
[2020-12-26] MEDS ORDERED: METO50TA7 PO (21:22)
[2020-12-26] MEDS ORDERED: NITR0.4T47 SL (21:25)
[2020-12-26] MEDS ORDERED: INSU100V42 (21:25)
[2020-12-26] MEDS ORDERED: ACET325T PO (21:25)
[2020-12-26] MEDS ORDERED: DOCU-156 PO (21:27)
[2020-12-26] MEDS ORDERED: SENN8.6T19 PO (21:27)
--- NOTE | 2020-12-26 21:27 | NUR ---
Patient's code status is FULL CODE paperwork completed and placed in chart.
--- NOTE | 2020-12-26 21:27 | NUR ---
Medication reconciliation completed with information provided by patient. Any prior medication reconciliation on file was reviewed and corrected.
--- NOTE | 2020-12-26 21:47 | NUR ---
Patient will be admitted to care of Dr. Mar. Admitted to TELE unit. Will be an ER HOLD. Belongings list completed. Complete and up to date summary report printed. SBAR report to be given at bedside with opportunity for questions.
--- NOTE | 2020-12-26 22:17 | NUR ---
Accucheck - blood sugar 102. MD notified.
--- NOTE | 2020-12-26 22:39 | NUR ---
Patient transferred onto hospital bed with clean linens. Patient given food to eat. Patient tolerating well.
[2020-12-26] MEDS ORDERED: ALBUTEROL IH SCH (22:45)
[2020-12-26] MEDS ORDERED: ACETAMINOPHEN 325 MG TABLET PO PRN (22:45)
[2020-12-26] MEDS ORDERED: ACETAMINOPHEN 325 MG TABLET PO SCH (22:45)
[2020-12-26] MEDS ORDERED: NITROGLYCERIN 0.4 MG TAB.SUBL SL PRN (22:45)
[2020-12-26] MEDS ORDERED: ONDANSETRON HCL 4 MG/2 ML VIAL IVP PRN (22:45)
[2020-12-26] MEDS ORDERED: IPRATROPIUM BROMIDE NS SCH (22:45)
[2020-12-26] MEDS ORDERED: LORazepam 2 MG/ML VIAL IVP PRN (22:45)
[2020-12-26] MEDS ORDERED: IPRATROPIUM/ALBUTEROL SULFATE 120 PUFFS/4 GM INH INH SCH (22:45)
[2020-12-26] MEDS ORDERED: DEXAMETHASONE SOD PHOSPHATE 10 MG/ML VIAL IVP SCH (23:00)
--- NOTE | 2020-12-26 23:32 | NUR ---
Patient given another tray of food to eat. Head of bed elevated. Patient tolerating well. Will continue to monitor.
[2020-12-26] MEDS: D5/0.45 NS 1,000 ML IV SCH (23:47)
--- NOTE | 2020-12-26 23:51 | NUR ---
Patient ambulated to restroom with assistance. Patient to obtain urine sample to be sent to lab.
--- NOTE | 2020-12-27 | NUR ---
MEDICATION ADMINISTRATION PATIENT IS RESTING IN BED. BLOOD GLUCOSE IS CURRENTLY 97. NO INSULIN COVERAGE NEEDED AT THIS TIME. MEDICATION ADMINISTERED ORDERED BY MD. PATIENT TOLERATED WELL. WILL CONTINUE TO MONITOR. Addendum: 12/28/20 at 0356 by Guillermina Lance RN ERROR TO TIME. WILL CORRECT
--- NOTE | 2020-12-27 00:37 | NUR ---
Patient resting quietly. No acute distress noted. Vital signs within normal range. Will continue to monitor.
[2020-12-27 00:44] LABS: BILIRUBIN,URINE NEGATIVE (NEGATIVE); BLOOD, URINE NEGATIVE (NEGATIVE); CLARITY/URINE CLEAR (CLEAR); COLOR,URINE YELLOW (YELLOW); GLUCOSE,URINE NEGATIVE (NEGATIVE); KETONES,URINE NEGATIVE (NEGATIVE); LEUKOCYTE ESTERASE ,URINE NEGATIVE (NEGATIVE); NITRITE, URINE NEGATIVE (NEGATIVE); PROTEIN URINE NEGATIVE (NEGATIVE); UROBILINOGEN,URINE 0.2 (0.2-1.0)
[2020-12-27] MEDS ORDERED: OXYCODONE/ACETAMINOPHEN 5-325 TABLET PO PRN (01:00)
--- NOTE | 2020-12-27 01:36 | NUR ---
Patient resting quietly. No acute distress noted. Vital signs within normal range. Will continue to monitor.
--- NOTE | 2020-12-27 03:32 | NUR ---
Patient resting quietly. No acute distress noted. Will continue to monitor.
[2020-12-27 04:49] VITALS: BP_SYST 131
--- NOTE | 2020-12-27 04:50 | NUR ---
# 22 gauge angiocath placed to right forearm. Use of asceptic technique. Opsite placed over site. Blood return noted. Flushed with 10 cc of normal saline. No evidence of infiltration noted. Patient tolerated well.
--- NOTE | 2020-12-27 05:10 | NUR ---
Patient short of breath upon exertion to ambulate to restroom. Patient returned to [facility], sitting upright with head of bed elevated. Patient has noticable increased work of breathing. Respiratory therapist paged and at bedside for ordered breathing treatment. Will continue to monitor.
[2020-12-27] MEDS ORDERED: IPRATROPIUM BROM 0.5 MG/2.5 ML VIAL.NEB (ATROVENT) INH ONE (05:16)
--- NOTE | 2020-12-27 05:17 | NUR ---
Per RT, patient placed on 3L nasal cannula for history of COPD. Will monitor O2 saturation.
[2020-12-27] MEDS: ALBUTEROL SULFATE 0.083% 2.5 MG/3 ML VIAL.NEB INH SCH ×4 (05:49→20:44)
[2020-12-27] MEDS: IPRATROPIUM BROM 0.5 MG/2.5 ML VIAL.NEB (ATROVENT) INH SCH ×3 (05:49→20:44)
[2020-12-27 06:48] LABS: HEMATOCRIT 39.5 % (36-48); HEMOGLOBIN 12.2 g/dL (12.0-16.0); LYMPHOCYTES # (AUTO) 0.4 K/uL (1.0-5.5); LYMPHOCYTES % (AUTO) 11.2 % (20.5-51.5); MEAN CORPUSCULAR HEMOGLOBIN 30 pg (27-31); MEAN CORPUSCULAR HGB CONC 31 % (32-36); MEAN CORPUSCULAR VOLUME 98 fL (79.0-98.0); MONOCYTES % (AUTO) 1.3 % (1.7-9.3); NEUTROPHILS # (AUTO) 3.4 K/uL (1.8-7.7); NEUTROPHILS % (AUTO) 87.5 % (40.0-70.0); PLATELET COUNT (AUTO) 184 K/uL (130-430); RED BLOOD CELL COUNT(AUTO) 4.04 MIL/uL (4.2-6.2); WHITE BLOOD COUNT (AUTO) 3.9 K/uL (4.8-10.8)
--- NOTE | 2020-12-27 06:49 | NUR ---
Dr. Mar page to notify of patients O2 saturation of 86-88% on 3L nasal cannula. Patient received breathing treatment around 0545. Improvement noted with work of breathing.
[2020-12-27] MEDS ORDERED: BUDESONIDE 0.5 MG/2 ML AMPUL.NEB INH SCH (07:00)
[2020-12-27 07:16] LABS: ANION GAP 4 (5-15); CALCIUM 8.4 mg/dL (8.4-11.0); CHLORIDE 104 mmol/L (98-107); CREATININE 0.97 mg/dL (0.55-1.30); GLUCOSE 290 mg/dL (70-99); PHOSPHORUS 4.5 mg/dL (2.7-4.5); POTASSIUM 4.6 mmol/L (3.5-5.1); SODIUM SERUM 142 mmol/L (136-145); UREA NITROGEN, BLOOD 29 mg/dL (8-21)
--- NOTE | 2020-12-27 07:21 | NUR ---
Report given to VENU Thompson for continuation of care.
--- NOTE | 2020-12-27 07:23 | NUR ---
Spoke with Dr. Mar regarding patients O2 saturation. Per Dr. Mar, maintain patient's O2 saturation above 90%, titrate O2 up. Patient O2 titrated to 4L nasal cannula. Will continue to monitor.
--- NOTE | 2020-12-27 07:30 | NUR ---
O2 increased to 5L/min via NC per Dr. Mar to keep O2sat 90%
--- NOTE | 2020-12-27 08:00 | NUR ---
RT came for resp. tx. O2 sat was 90% on 5L/min, breathing treatment done, pt. lethargic, accu check done BS 311, RT decreased O2 back to 3l/min sat 90% post tx.
[2020-12-27] MEDS ORDERED: INSULIN REGULAR, HUMAN 10 UNITS/0.1 ML INJ ONE (08:29)
[2020-12-27] MEDS: INSULIN REGULAR, HUMAN 100 UNITS/ML, 10 ML VIAL (humuLIN R) SUBCUT PRN ×2 (08:29→18:52)
--- NOTE | 2020-12-27 08:35 | NUR ---
Spoke with Dr. Mar regarding lethargy ABG ordered
--- NOTE | 2020-12-27 08:53 | NUR ---
ABG results back pCO2 85, Belia here from RT will notify Dr. Jenkins and start pt. on bipap
[2020-12-27] MEDS ORDERED: BUDESONIDE/FORMOTEROL 160-4.5 mCg, 6 GM INHALER INH SCH (09:00)
[2020-12-27] MEDS ORDERED: predniSONE 10 MG TABLET PO SCH (09:00)
[2020-12-27] MEDS ORDERED: METOPROLOL SUCCINATE 50 MG TAB.SR.24H (TOPROL XL) PO SCH (09:00)
[2020-12-27] MEDS: DOCUSATE SODIUM 100 MG CAPSULE PO SCH ×2 (09:00→21:19)
--- NOTE | 2020-12-27 09:02 | NUR ---
holding po meds. d/o lethargy
--- NOTE | 2020-12-27 09:19 | NUR ---
Spoke with Dr. Jenkins, order for bipap, RT here, pt. being placed on at this time, will repeat ABG in 2 hours.
[2020-12-27] MEDS: D5/0.45 NS 1,000 ML IV SCH ×2 (12:00→18:45)
[2020-12-27 12:17] VITALS: BP_SYST 116
--- NOTE | 2020-12-27 12:17 | NUR ---
ADMISSION NOTE Received patient from ER via abi, received report from Donna LEA. Patient admitted with diagnosis of Pneumonia. Patient oriented to hospital routine, call light, toileting and safety-patient verbalized understanding.
--- NOTE | 2020-12-27 12:20 | NUR ---
RT NOTE: 1220 Pt moved from ER 6 to 133 A on 2LPM nasal cannula. Pt is a lot more alert and awake. SpO2 is between 90-92%. BiPAP on standby.
--- NOTE | 2020-12-27 12:35 | NUR ---
Patient will be admitted to care of Admitted to tele unit. Will go to room 133A. Belongings list completed. Complete and up to date summary report printed. SBAR report given at bedside to Melida with opportunity for questions.
--- NOTE | 2020-12-27 12:39 | NUR ---
CONSULT ID [facility]NEUMONIA [facility] [phone] S/W ESSENCE EXCHANGE
--- NOTE | 2020-12-27 12:50 | NUR ---
Spoke with Dr. Jackson gave updates on patient, no new orders at this time.
[2020-12-27] MEDS: DIAZEPAM 5 MG TABLET (VALIUM) PO SCH ×3 (13:06→21:22)
[2020-12-27] MEDS: acetaZOLAMIDE 250 MG TABLET (DIAMOX) PO SCH ×2 (13:06→21:20)
[2020-12-27] MEDS: LOSARTAN POTASSIUM 50 MG TABLET (COZAAR) PO SCH (13:06)
--- NOTE | 2020-12-27 13:07 | NUR ---
0900 Medications patient was in ER at 0900 still, per ER nurse, the patient was lethargic at that time so they did not administer medications.
--- NOTE | 2020-12-27 13:15 | NUR ---
NURSE REPORT REPORT OBTAINED FROM CHARGE NURSE ROYAL AND THIS NURSE ASSUMED CARE OF PATIENT. RECEIVED PATIENT WITHOUT ANY SXS OF DISCOMFORT OR DISTRESS. IV D5 1/2NS INTACT AND INFUSING AT 100 ML/HR. SIDE RAILS ELEVATED X 3. CALL LIGHT WITHIN REACH.
[2020-12-27] MEDS ORDERED: methylPREDNISolone SOD SUCC/PF 62.5 MG/ML VIAL IVP SCH (13:30)
[2020-12-27] MEDS ORDERED: IPRATROPIUM/ALBUTEROL SULFATE 3 ML AMPUL.NEB (DUONEB) INH PRN (13:30)
--- NOTE | 2020-12-27 13:50 | NUR ---
NURSE NOTE REPORT OBTAINED FROM CHARGE NURSE ROYAL AND THIS NURSE ASSUMED CARE OF PATIENT. RECEIVED PATIENT ASLEEP WITHOUT KIRSTIE SXS OF PAIN OR DISTRESS. IV D5 1/2NS AT 100 ML/HR. - ON DROPLET PRECAUTIONS PUI
[2020-12-27 16:00] VITALS: BP_SYST 126
--- NOTE | 2020-12-27 17:00 | NUR ---
NURSE CARE VALIUM NOT GIVEN SINCE PATIENT ASLEEP.
--- NOTE | 2020-12-27 18:50 | NUR ---
NURSE CARE BG BEFORE DINNER 189. PATIENT HAD STATED SHE GET 2 UNITS OF INSULIN. PATIENT WAS INCONTINENT OF URINE, CLEANSED AND LINEN CHANGED. GIVEN T 2 UNITS OF REGULAR.
--- NOTE | 2020-12-27 19:30 | NUR ---
OPENING NOTES: Patient is resting in bed, alert and oriented. She is on 2L O2 via NC, tolerating well and with unlabored breathing. IV noted on right forearm with dry and intact dressing. Ensured all safety precautions. Bed is locked and in the lowest position, call light within reach and bed alarm is on.
--- NOTE | 2020-12-27 20:13 | NUR ---
NURSE REPORT AND ENDORSEMENT REPORT GIVEN TO SUJATHA CAMPBELL. SBAR GIVEN AND ALL QUESTIONS ANSWERED. MASTECTOMY ON HOLD SINCE NOT ALL FAMILY MEMBER IN AGREEMENT WITH THE PROCEDURE. SON VERENA WOULD LIKE A DIFFERENT OPINION FROM ONCOLOGIST.
[2020-12-27 20:30] VITALS: BP_SYST 130
[2020-12-27] MEDS: BUDESONIDE 0.5 MG/2 ML AMPUL.NEB INH SCH (20:45)
[2020-12-27] MEDS: INSULIN Lispro 100 UNITS/ML VIAL (humaLOG) SUBCUT SCH (21:00)
--- NOTE | 2020-12-27 21:15 | NUR ---
MEDICATION ADMINISTRATION PATIENT IS RESTING IN BED. BLOOD GLUCOSE IS CURRENTLY 97. NO INSULIN COVERAGE NEEDED AT THIS TIME. MEDICATION ADMINISTERED ORDERED BY MD. PATIENT TOLERATED WELL. WILL CONTINUE TO MONITOR.
[2020-12-27] MEDS: SENNOSIDES 8.6 MG TABLET PO SCH (21:20)
[2020-12-27] MEDS: cefTRIAXone 1 GM IVPB PREMIX 50 ML IV SCH (21:20)
[2020-12-27] MEDS: AZITHROMYCIN 500 MG in NS 250 ML IV SCH (21:21)
[2020-12-27] MEDS: methylPREDNISolone SOD SUCC/PF 62.5 MG/ML VIAL IVP SCH (21:24)
[2020-12-28 01:02] VITALS: BP_SYST 131
[2020-12-28] MEDS: D5/0.45 NS 1,000 ML IV SCH ×3 (01:55→23:26)
--- NOTE | 2020-12-28 01:56 | NUR ---
PATIENT COMPLAINED OF THROAT PAIN 6/10 ADMINISTERED PRN PAIN MEDICATION PER ORDER PATIENT TOLERATED WELL EDUCATED PATIENT ABOUT THE ACTION OF PERCOCET AND POTENTIAL SIDE EFFECTS PATIENT VERBALIZED UNDERSTANDING WILL CONTINUE TO MONITOR PATIENT.
--- NOTE | 2020-12-28 02:56 | NUR ---
RN ROUNDS PATIENT IS RESTING. NOT EXHIBITING ANY SIGNS OF DISTRESS OR DISCOMFORT. REASSESSED FOR PAIN. PATIENT DECLINED PAIN AT THIS TIME. WILL CONTINUE TO MONITOR.
[2020-12-28] MEDS: methylPREDNISolone SOD SUCC/PF 62.5 MG/ML VIAL IVP SCH ×3 (06:50→23:24)
[2020-12-28] MEDS: INSULIN REGULAR, HUMAN 100 UNITS/ML, 10 ML VIAL (humuLIN R) SUBCUT PRN ×4 (06:52→21:14)
--- NOTE | 2020-12-28 06:53 | NUR ---
CLOSING NOTES: Patient is resting in bed, alert and oriented. She is on 2L O2 via NC, tolerating well and with unlabored breathing. 22 g IV on right forearm with dry and intact dressing, infusing well. BG this morning was 243, insulin administered as ordered. Patient tolerated well. Ensured all safety precautions. Bed is locked and in the lowest position, call light within reach and bed alarm is on. All needs were met throughout shift. Will endorse to dayshift nurse.
[2020-12-28 07:03] LABS: HEMATOCRIT 40.1 % (36-48); HEMOGLOBIN 12.4 g/dL (12.0-16.0); LYMPHOCYTES # (AUTO) 0.2 K/uL (1.0-5.5); MEAN CORPUSCULAR HEMOGLOBIN 30 pg (27-31); MEAN CORPUSCULAR HGB CONC 31 % (32-36); MEAN CORPUSCULAR VOLUME 98 fL (79.0-98.0); MONOCYTES # (AUTO) 0.1 K/uL (0.0-1.0); NEUTROPHILS # (AUTO) 5.5 K/uL (1.8-7.7); PLATELET COUNT (AUTO) 169 K/uL (130-430); RED BLOOD CELL COUNT(AUTO) 4.09 MIL/uL (4.2-6.2); RED CELL DISTRIBUTION WIDTH 13.9 % (9.0-15.0); WHITE BLOOD COUNT (AUTO) 5.8 K/uL (4.8-10.8)
[2020-12-28 07:34] LABS: ANION GAP 5 (5-15); CHLORIDE 102 mmol/L (98-107); CREATININE 0.81 mg/dL (0.55-1.30); GLUCOSE 299 mg/dL (70-99); POTASSIUM 4.9 mmol/L (3.5-5.1); SODIUM SERUM 136 mmol/L (136-145); UREA NITROGEN, BLOOD 27 mg/dL (8-21)
[2020-12-28 08:00] VITALS: BP_SYST 150
--- NOTE | 2020-12-28 08:00 | NUR ---
Opening Note Patient is resting in bed, alert and oriented. She is on 2L O2 via NC, tolerating well and with unlabored breathing. IV noted on right forearm with dry and intact dressing. Ensured all safety precautions. Bed is locked and in the lowest position, call light within reach and bed alarm is on.
[2020-12-28] MEDS: acetaZOLAMIDE 250 MG TABLET (DIAMOX) PO SCH ×2 (08:17→20:49)
[2020-12-28] MEDS: DOCUSATE SODIUM 100 MG CAPSULE PO SCH ×2 (08:18→20:49)
[2020-12-28] MEDS: DIAZEPAM 5 MG TABLET (VALIUM) PO SCH ×4 (08:18→20:49)
[2020-12-28] MEDS: LOSARTAN POTASSIUM 50 MG TABLET (COZAAR) PO SCH (08:18)
[2020-12-28 08:35] LABS: C-REACTIVE PROTEIN QUANT 0.4 mg/dL (0-0.5)
[2020-12-28] MEDS: BUDESONIDE 0.5 MG/2 ML AMPUL.NEB INH SCH ×2 (09:44→20:39)
[2020-12-28] MEDS: IPRATROPIUM BROM 0.5 MG/2.5 ML VIAL.NEB (ATROVENT) INH SCH ×3 (09:44→20:39)
[2020-12-28] MEDS: ALBUTEROL SULFATE 0.083% 2.5 MG/3 ML VIAL.NEB INH SCH ×3 (09:44→20:37)
[2020-12-28] MEDS ORDERED: METOPROLOL TARTRATE 50 MG TABLET PO SCH (09:45)
--- NOTE | 2020-12-28 10:01 | NUR ---
Nutrition Update David Scale 18 noted. Pt admitted for pneumonia. Diet: cardiac, CCHO standard carb-60 gm BMI: 20.3 kg/m2 RD to follow per nutrition care standards.
[2020-12-28 11:04] LABS: ERYTHROCYTE SEDIMENTATION RATE 6 MM/HR (0-20)
--- NOTE | 2020-12-28 11:10 | NUR ---
Paged Dr. Mar Regarding DVT prophylaxis and patient requesting cough medicine, new orders received.
[2020-12-28] MEDS ORDERED: guaiFENesin/DEXTROMETHORPHAN 10 ML UDC PO ONE (11:30)
[2020-12-28] MEDS ORDERED: HEPARIN SODIUM,PORCINE 5,000 UNITS/ML VIAL SUBCUT SCH (11:30)
[2020-12-28 12:10] VITALS: BP_SYST 154
[2020-12-28 16:26] VITALS: BP_SYST 113
--- NOTE | 2020-12-28 17:21 | NUR ---
Dietitian Recommendations * Recommend cardiac, CCHO standard carb-60 gm diet w/ Glucerna TID (ONS provides 660 kcal/day, 30 gm protein/day) * Encourage increase PO intakes LP, RD Please refer to Nutrition Assessment for details. Addendum: 12/28/20 at [address] Amended: Links added.
--- NOTE | 2020-12-28 18:47 | NUR ---
CLOSING NOTES: Patient is resting in bed, alert and oriented. She is on 2L O2 via NC, tolerating well and with unlabored breathing. 22 g IV on right forearm with dry and intact dressing, infusing well. BG at 1700 was 269, insulin administered as ordered. Patient tolerated well. Ensured all safety precautions. Bed is locked and in the lowest position, call light within reach and bed alarm is on. All needs were met throughout shift. Will endorse to physician/allergy/immunology nurse.
--- NOTE | 2020-12-28 19:10 | NUR ---
OPENING NOTES PATIENT RESTING, NO SIGNS OF ACUTE RESPIRATORY DISTRESS NOTED, PATIENT HAVING BREATHING TREATMENT AT THIS TIME. CALL LIGHT WITHIN REACH, BED ALARM ON, PATIENT DEMONSTRATES PROPER CALL LIGHT USAGE AND BED AT LOWEST POSITION, BED LOCKED. PLAN OF CARE DISCUSSED WITH PATIENT. SAFETY, RESPIRATORY, ASPIRATION, FALL, AND ISOLATION PRECAUTIONS IN PLACE. WILL CONTINUE TO MONITOR.
[2020-12-28 20:00] VITALS: BP_SYST 139
[2020-12-28] MEDS: cefTRIAXone 1 GM IVPB PREMIX 50 ML IV SCH (20:49)
[2020-12-28] MEDS: SENNOSIDES 8.6 MG TABLET PO SCH (20:49)
[2020-12-28] MEDS: guaiFENesin/DEXTROMETHORPHAN 10 ML UDC PO SCH (20:50)
[2020-12-28] MEDS: HEPARIN SODIUM,PORCINE 5,000 UNITS/ML VIAL SUBCUT SCH (20:51)
[2020-12-28] MEDS: INSULIN Lispro 100 UNITS/ML VIAL (humaLOG) SUBCUT SCH (21:08)
[2020-12-28] MEDS: AZITHROMYCIN 500 MG in NS 250 ML IV SCH (23:24)
--- NOTE | 2020-12-29 01:13 | NUR ---
DR. GOLDSTEIN MAKING ROUNDS.
[2020-12-29 01:31] VITALS: BP_SYST 128
[2020-12-29] MEDS: ALBUTEROL SULFATE 0.083% 2.5 MG/3 ML VIAL.NEB INH SCH ×4 (04:11→20:16)
[2020-12-29] MEDS: INSULIN REGULAR, HUMAN 100 UNITS/ML, 10 ML VIAL (humuLIN R) SUBCUT PRN ×4 (06:30→22:26)
[2020-12-29] MEDS: methylPREDNISolone SOD SUCC/PF 62.5 MG/ML VIAL IVP SCH ×3 (06:46→22:16)
--- NOTE | 2020-12-29 07:16 | NUR ---
CLOSING NOTES PATIENT RESTING, NO SIGNS OF ACUTE RESPIRATORY DISTRESS NOTED. CALL LIGHT WITHIN REACH, BED ALARM ON, BED LOCKED. SAFETY, RESPIRATORY, ASPIRATION, FALL, AND ISOLATION PRECAUTIONS IN PLACE THROUGHOUT SHIFT. ALL NEEDS MET THROUGHOUT SHIFT. WILL ENDORSE CARE TO ONCOMING SHIFT.
[2020-12-29 07:47] LABS: ALANINE AMINOTRANSFERASE 76 U/L (12-78); ALBUMIN 2.6 g/dL (3.4-4.8); ANION GAP 6 (5-15); ASPARTATE AMINOTRANSFERASE 88 U/L (10-37); C-REACTIVE PROTEIN QUANT < 0.2 mg/dL (0-0.5); CALCIUM 9.5 mg/dL (8.4-11.0); CHLORIDE 104 mmol/L (98-107); CREATININE 0.71 mg/dL (0.55-1.30); GLUCOSE 235 mg/dL (70-99); POTASSIUM 5.6 mmol/L (3.5-5.1); SODIUM SERUM 134 mmol/L (136-145); TOTAL BILIRUBIN 0.4 mg/dL (0.0-1.0); UREA NITROGEN, BLOOD 28 mg/dL (8-21)
[2020-12-29 07:55] LABS: BASOPHILS % (AUTO) 0.1 % (0.0-2.0); HEMOGLOBIN 13.3 g/dL (12.0-16.0); LYMPHOCYTES # (AUTO) 0.2 K/uL (1.0-5.5); LYMPHOCYTES % (AUTO) 2.6 % (20.5-51.5); MEAN CORPUSCULAR HEMOGLOBIN 30 pg (27-31); MEAN CORPUSCULAR HGB CONC 30 % (32-36); MEAN CORPUSCULAR VOLUME 99 fL (79.0-98.0); MONOCYTES # (AUTO) 0.2 K/uL (0.0-1.0); NEUTROPHILS # (AUTO) 8.5 K/uL (1.8-7.7); NEUTROPHILS % (AUTO) 95.3 % (40.0-70.0); PLATELET COUNT (AUTO) 184 K/uL (130-430); RED BLOOD CELL COUNT(AUTO) 4.45 MIL/uL (4.2-6.2); RED CELL DISTRIBUTION WIDTH 14.4 % (9.0-15.0); WHITE BLOOD COUNT (AUTO) 8.9 K/uL (4.8-10.8)
[2020-12-29] MEDS: IPRATROPIUM BROM 0.5 MG/2.5 ML VIAL.NEB (ATROVENT) INH SCH ×4 (07:59→20:16)
[2020-12-29] MEDS: BUDESONIDE 0.5 MG/2 ML AMPUL.NEB INH SCH ×2 (07:59→20:16)
--- NOTE | 2020-12-29 08:00 | NUR ---
OPENING NOTES: PATIENT RESTING IN BED. BREATHING EVEN AND NON LABORED TO O2 AT 2L/NC. IV PATENT AND INFUSING WELL. BED LOCKED, ALARM ON AND IN LOWEST POSITION. FALL, SAFETY AND ASPIRATION PRECAUTION REINFORCED. CALL LIGHT WITHIN REACH.
[2020-12-29] MEDS: DOCUSATE SODIUM 100 MG CAPSULE PO SCH ×2 (08:19→22:16)
[2020-12-29] MEDS: acetaZOLAMIDE 250 MG TABLET (DIAMOX) PO SCH ×2 (08:19→22:17)
[2020-12-29] MEDS: DIAZEPAM 5 MG TABLET (VALIUM) PO SCH ×3 (08:20→22:16)
[2020-12-29] MEDS: guaiFENesin/DEXTROMETHORPHAN 10 ML UDC PO SCH ×2 (08:21→22:16)
[2020-12-29] MEDS: LOSARTAN POTASSIUM 50 MG TABLET (COZAAR) PO SCH (08:21)
[2020-12-29] MEDS: HEPARIN SODIUM,PORCINE 5,000 UNITS/ML VIAL SUBCUT SCH ×2 (08:27→22:24)
[2020-12-29 08:29] VITALS: BP_SYST 133
[2020-12-29] MEDS: D5/0.45 NS 1,000 ML IV SCH (10:21)
[2020-12-29 11:50] LABS: ERYTHROCYTE SEDIMENTATION RATE 2 MM/HR (0-20)
--- NOTE | 2020-12-29 12:03 | NUR ---
RN NOTES/ ACCUCHECK: PATIENT RESTING IN BED. NO SIGNS OF ACUTE DISTRESS NOTED. BED LOCKED ALARM, ON AND IN LOWEST POSITION. FALL AND SAFETY MEASURES RENDERED. ACCUCHECK (186) . REGULAR INSULIN GIVEN ORDERED. CALL LIGHT WITHIN REACH.
[2020-12-29 12:30] VITALS: BP_SYST 124
--- NOTE | 2020-12-29 17:01 | NUR ---
SPOKE TO DR. GALLOWAY (Re: Metropolol): PER DR. GALLOWAY MAY STOP THE METROPOLOL 50 MG QAM AND CONTINUE METROPOLOL 50 MG BID.
[2020-12-29 17:24] VITALS: BP_SYST 119
--- NOTE | 2020-12-29 18:54 | NUR ---
CLOSING NOTES: PATIENT EATING DINNER. NO SIGNS OF ACUTE DISTRESS NOTED. IV PATENT AND INFUSING WELL. BED LOCKED, ALARM ON AND IN LOWEST POSITION. CALL LIGHT WITHIN REACH. WILL CONTINUE MONITOR UNTIL ENDORSE TO LINING MACHINE OPERATOR RN.
--- NOTE | 2020-12-29 19:10 | NUR ---
OPENING NOTES PATIENT SITTING UP IN BED, HOB ELEVATED, NO SIGNS OF ACUTE RESPIRATORY DISTRESS NOTED. CALL LIGHT WITHIN REACH, BED ALARM ON, PATIENT DEMONSTRATES PROPER CALL LIGHT USAGE AND BED AT LOWEST POSITION, BED LOCKED. PLAN OF CARE DISCUSSED WITH PATIENT. SAFETY, RESPIRATORY, ASPIRATION, FALL, AND ISOLATION PRECAUTIONS IN PLACE. WILL CONTINUE TO MONITOR.
[2020-12-29 20:00] VITALS: BP_SYST 126
[2020-12-29] MEDS: METOPROLOL TARTRATE 50 MG TABLET PO SCH ×2 (21:57→22:28)
--- NOTE | 2020-12-29 22:10 | NUR ---
IV INFILTRATION NOTED, IV DISCONTINUED, CATHETER INTACT, NO ACTIVE BLEEDING NOTED. NEW IV SITE PROVIDED, PATENT, DRESSINGS C/D/I.
[2020-12-29] MEDS: cefTRIAXone 1 GM IVPB PREMIX 50 ML IV SCH (22:16)
[2020-12-29] MEDS: SENNOSIDES 8.6 MG TABLET PO SCH (22:17)
[2020-12-29] MEDS: INSULIN Lispro 100 UNITS/ML VIAL (humaLOG) SUBCUT SCH (22:25)
[2020-12-29] MEDS: NORMAL SALINE 5 ML DISP.SYRIN IVF SCH (22:27)
[2020-12-30] VITALS: BP_SYST 142
[2020-12-30] MEDS: AZITHROMYCIN 500 MG in NS 250 ML IV SCH ×2 (00:26→22:27)
--- NOTE | 2020-12-30 04:25 | NUR ---
INCONTINENCE CARE PROVIDED, PATIENT DOES NOT HELP TURN MUCH, NO NAUSEA NOTED AT THIS TIME, O2 SATURATION AT 98% AT THIS TIME, LINEN CHANGED. BED ALARM ON, BED LOCKED. WILL CONTINUE TO MONITOR.
[2020-12-30] MEDS: methylPREDNISolone SOD SUCC/PF 62.5 MG/ML VIAL IVP SCH ×3 (06:38→22:29)
[2020-12-30] MEDS: NORMAL SALINE 5 ML DISP.SYRIN IVF SCH ×3 (06:38→22:44)
[2020-12-30 07:10] LABS: ANION GAP 7 (5-15); CALCIUM 9.4 mg/dL (8.4-11.0); CHLORIDE 107 mmol/L (98-107); CREATININE 0.73 mg/dL (0.55-1.30); GLUCOSE 159 mg/dL (70-99); SODIUM SERUM 138 mmol/L (136-145); UREA NITROGEN, BLOOD 30 mg/dL (8-21)
--- NOTE | 2020-12-30 07:15 | NUR ---
CLOSING NOTES PATIENT RESTING, NO SIGNS OF ACUTE RESPIRATORY DISTRESS NOTED, HOB ELEVATED. CALL LIGHT WITHIN REACH, BED ALARM ON, PATIENT DEMONSTRATED PROPER CALL LIGHT USAGE BUT DOES NOT USE, FORGETFUL, FOLLOWED CLOSELY THROUGHOUT SHIFT AND BED AT LOWEST POSITION, BED LOCKED. SAFETY, RESPIRATORY, ASPIRATION, FALL, AND ISOLATION PRECAUTIONS IN PLACE THROUGHOUT SHIFT. ALL NEEDS MET THROUGHOUT SHIFT. WILL ENDORSE CARE TO ONCOMING SHIFT AND PCR STILL PENDING AND ENDORSED TO AM SHIFT.
[2020-12-30 07:19] LABS: C-REACTIVE PROTEIN QUANT < 0.2 mg/dL (0-0.5)
[2020-12-30 07:36] LABS: BASOPHILS % (AUTO) 0.1 % (0.0-2.0); HEMATOCRIT 42.9 % (36-48); HEMOGLOBIN 13.2 g/dL (12.0-16.0); LYMPHOCYTES # (AUTO) 0.3 K/uL (1.0-5.5); LYMPHOCYTES % (AUTO) 4.2 % (20.5-51.5); MEAN CORPUSCULAR HEMOGLOBIN 30 pg (27-31); MEAN CORPUSCULAR HGB CONC 31 % (32-36); MEAN CORPUSCULAR VOLUME 97 fL (79.0-98.0); MONOCYTES # (AUTO) 0.2 K/uL (0.0-1.0); MONOCYTES % (AUTO) 3.2 % (1.7-9.3); NEUTROPHILS # (AUTO) 7.1 K/uL (1.8-7.7); NEUTROPHILS % (AUTO) 92.5 % (40.0-70.0); PLATELET COUNT (AUTO) 191 K/uL (130-430); RED BLOOD CELL COUNT(AUTO) 4.44 MIL/uL (4.2-6.2); RED CELL DISTRIBUTION WIDTH 14.1 % (9.0-15.0); WHITE BLOOD COUNT (AUTO) 7.6 K/uL (4.8-10.8)
[2020-12-30] MEDS: ALBUTEROL SULFATE 0.083% 2.5 MG/3 ML VIAL.NEB INH SCH ×3 (08:29→20:25)
[2020-12-30] MEDS: IPRATROPIUM BROM 0.5 MG/2.5 ML VIAL.NEB (ATROVENT) INH SCH ×3 (08:29→20:25)
[2020-12-30] MEDS: BUDESONIDE 0.5 MG/2 ML AMPUL.NEB INH SCH ×2 (08:30→20:25)
--- NOTE | 2020-12-30 09:44 | NUR ---
DR GALLOWAY MADE AWARE. OF POTASSIUM LEVEL YESTERDAY. SAID WE WILL WAIT FOR THE RESULT OF TODAY LAB
[2020-12-30] MEDS: HEPARIN SODIUM,PORCINE 5,000 UNITS/ML VIAL SUBCUT SCH ×2 (10:10→22:43)
[2020-12-30] MEDS: guaiFENesin/DEXTROMETHORPHAN 10 ML UDC PO SCH ×2 (10:10→21:00)
[2020-12-30] MEDS: DIAZEPAM 5 MG TABLET (VALIUM) PO SCH ×3 (10:13→21:00)
[2020-12-30] MEDS: acetaZOLAMIDE 250 MG TABLET (DIAMOX) PO SCH ×2 (10:14→21:00)
[2020-12-30] MEDS: DOCUSATE SODIUM 100 MG CAPSULE PO SCH ×2 (10:14→21:00)
[2020-12-30] MEDS: METOPROLOL TARTRATE 50 MG TABLET PO SCH ×2 (10:14→21:00)
[2020-12-30] MEDS: LOSARTAN POTASSIUM 50 MG TABLET (COZAAR) PO SCH (10:14)
[2020-12-30 10:53] VITALS: BP_SYST 142
[2020-12-30 12:00] VITALS: BP_SYST 120
--- NOTE | 2020-12-30 12:00 | NUR ---
latest bs 237 mg/dl. coverage given.
[2020-12-30 12:23] LABS: ERYTHROCYTE SEDIMENTATION RATE 1 MM/HR (0-20)
[2020-12-30] MEDS: INSULIN REGULAR, HUMAN 100 UNITS/ML, 10 ML VIAL (humuLIN R) SUBCUT PRN (12:27)
[2020-12-30 16:33] VITALS: BP_SYST 130
--- NOTE | 2020-12-30 17:19 | NUR ---
refused blood sugar.
--- NOTE | 2020-12-30 18:14 | NUR ---
PATIENT SLEEPING AND RESTING WELL. STILL ON CONTOUR BAND SAW OPERATOR VERTICAL OF SINUS RTHYM NO ECTOPY NOTED. STILL WITH RT FOREARM IV ACCESS OF $22. PATENT/DRY. NO S/S OF DISTRESS NOR PAIN NOTED. HAS OXYGEN OF 2LNC. STABLE. ENDORSED TO INCOMING NURSE. BED LOW POSITION, ALARMED AND LOCKED.
--- NOTE | 2020-12-30 19:15 | NUR ---
OPENING NOTES Patient resting in bed no s/s pain or distress noted. respirations even and unlabored - head of bed elevated. IV site patent - no s/s redness, infection, or infiltration. Skin warm and dry no s/s hypoglycemia. Bed locked and in lowest position. Call light within reach - bed alarm on.
[2020-12-30] MEDS: SENNOSIDES 8.6 MG TABLET PO SCH (21:00)
[2020-12-30] MEDS: cefTRIAXone 1 GM IVPB PREMIX 50 ML IV SCH (22:27)
[2020-12-31] MEDS: INSULIN REGULAR, HUMAN 100 UNITS/ML, 10 ML VIAL (humuLIN R) SUBCUT PRN ×3 (00:48→17:13)
[2020-12-31] MEDS: INSULIN Lispro 100 UNITS/ML VIAL (humaLOG) SUBCUT SCH (00:56)
[2020-12-31 00:59] VITALS: BP_SYST 142
[2020-12-31] MEDS: ALBUTEROL SULFATE 0.083% 2.5 MG/3 ML VIAL.NEB INH SCH ×4 (02:34→19:00)
[2020-12-31] MEDS: NORMAL SALINE 5 ML DISP.SYRIN IVF SCH ×2 (06:41→15:30)
[2020-12-31] MEDS: methylPREDNISolone SOD SUCC/PF 62.5 MG/ML VIAL IVP SCH ×2 (06:41→15:29)
[2020-12-31] MEDS: IPRATROPIUM BROM 0.5 MG/2.5 ML VIAL.NEB (ATROVENT) INH SCH ×4 (07:38→19:00)
[2020-12-31] MEDS: BUDESONIDE 0.5 MG/2 ML AMPUL.NEB INH SCH ×2 (07:38→19:00)
--- NOTE | 2020-12-31 07:40 | NUR ---
OPENING NOTES PATIENT ASLEEP. VITALS SIGNS STABLE. AFEBRILE. AAOX 2-3. NO S/S OF DISTRESS NOTED. HAS OXYGEN ON 3 LITER VIA NASAL CANNULA. HAS IV ACCESS ON THE RT FOREARM #22. SALINE LOCK. PATENT/DRY. WILL CONTINUE TO MONITOR PATIENTS STATUS.
--- NOTE | 2020-12-31 07:52 | NUR ---
CLOSING NOTES Patient resting in bed no s/s pain or distress noted. respirations even and unlabored - head of bed elevated. IV site patent - no s/s redness, infection, or infiltration. Skin warm and dry no s/s hypoglycemia. Bed locked and in lowest position. Call light within reach - bed alarm on. Due to time constraints and unavailability of glucometers on the floor between [id number] and due to business of shift between 0500 and 0600 blood sugar check at this time was not able to be performed. Endorsed to dayshift. Patient stable.
[2020-12-31 08:38] LABS: BASOPHILS % (AUTO) 0.1 % (0.0-2.0); HEMATOCRIT 41.8 % (36-48); LYMPHOCYTES # (AUTO) 0.3 K/uL (1.0-5.5); LYMPHOCYTES % (AUTO) 6.3 % (20.5-51.5); MEAN CORPUSCULAR HEMOGLOBIN 30 pg (27-31); MEAN CORPUSCULAR HGB CONC 31 % (32-36); MEAN CORPUSCULAR VOLUME 96 fL (79.0-98.0); MONOCYTES # (AUTO) 0.2 K/uL (0.0-1.0); MONOCYTES % (AUTO) 5.2 % (1.7-9.3); NEUTROPHILS # (AUTO) 4.1 K/uL (1.8-7.7); NEUTROPHILS % (AUTO) 88.4 % (40.0-70.0); PLATELET COUNT (AUTO) 161 K/uL (130-430); RED BLOOD CELL COUNT(AUTO) 4.37 MIL/uL (4.2-6.2); RED CELL DISTRIBUTION WIDTH 13.9 % (9.0-15.0); WHITE BLOOD COUNT (AUTO) 4.7 K/uL (4.8-10.8)
[2020-12-31] MEDS: acetaZOLAMIDE 250 MG TABLET (DIAMOX) PO SCH ×2 (08:54→21:40)
[2020-12-31] MEDS: HEPARIN SODIUM,PORCINE 5,000 UNITS/ML VIAL SUBCUT SCH ×2 (08:54→21:40)
[2020-12-31] MEDS: DIAZEPAM 5 MG TABLET (VALIUM) PO SCH ×3 (08:54→21:41)
[2020-12-31] MEDS: DOCUSATE SODIUM 100 MG CAPSULE PO SCH ×2 (08:55→21:41)
[2020-12-31] MEDS: LOSARTAN POTASSIUM 50 MG TABLET (COZAAR) PO SCH (08:55)
[2020-12-31] MEDS: METOPROLOL TARTRATE 50 MG TABLET PO SCH ×2 (08:55→21:42)
[2020-12-31 09:10] VITALS: BP_SYST 140
[2020-12-31 10:12] LABS: ANION GAP 8 (5-15); CALCIUM 9.2 mg/dL (8.4-11.0); CHLORIDE 109 mmol/L (98-107); CREATININE 0.68 mg/dL (0.55-1.30); GLUCOSE 150 mg/dL (70-99); POTASSIUM 4.5 mmol/L (3.5-5.1); SODIUM SERUM 141 mmol/L (136-145); UREA NITROGEN, BLOOD 30 mg/dL (8-21)
[2020-12-31 10:50] LABS: C-REACTIVE PROTEIN QUANT < 0.2 mg/dL (0-0.5)
[2020-12-31] MEDS: guaiFENesin/DEXTROMETHORPHAN 10 ML UDC PO SCH ×2 (11:26→21:40)
[2020-12-31 12:09] VITALS: BP_SYST 149
[2020-12-31 15:04] LABS: ERYTHROCYTE SEDIMENTATION RATE 1 MM/HR (0-20)
[2020-12-31 16:10] VITALS: BP_SYST 156
--- NOTE | 2020-12-31 17:13 | NUR ---
LATEST BS 194 MG/DL COVERAGE GIVEN
--- NOTE | 2020-12-31 18:30 | NUR ---
CLOSING NOTES PATIENT ALERT AWAKE X 2-3. LUNGS BILATERALLY DIMINISHED AT THE BASES. ABDOMEN SOFT AND NON DISTENDED. HAS IV ACCESS ON THE RT FOREARM #22. SALINE LOCK. CALL LIGHTS WITHIN REACH. BED LOW POSITION, ALARMED AND LOCKED. WILL CONTINUE TO MONITOR PATIENTS STATUS.
[2020-12-31 20:00] VITALS: BP_SYST 160
[2020-12-31] MEDS: cefTRIAXone 1 GM IVPB PREMIX 50 ML IV SCH (21:40)
[2020-12-31] MEDS: SENNOSIDES 8.6 MG TABLET PO SCH (21:41)
[2020-12-31] MEDS: AZITHROMYCIN 500 MG in NS 250 ML IV SCH (21:43)
[2021-01-01] MEDS: NORMAL SALINE 5 ML DISP.SYRIN IVF SCH ×4 (00:17→22:49)
[2021-01-01] MEDS: methylPREDNISolone SOD SUCC/PF 62.5 MG/ML VIAL IVP SCH ×4 (00:18→22:49)
[2021-01-01] MEDS: INSULIN REGULAR, HUMAN 100 UNITS/ML, 10 ML VIAL (humuLIN R) SUBCUT PRN ×4 (00:22→21:13)
[2021-01-01] MEDS: INSULIN Lispro 100 UNITS/ML VIAL (humaLOG) SUBCUT SCH ×2 (00:23→21:12)
[2021-01-01] MEDS: ALBUTEROL SULFATE 0.083% 2.5 MG/3 ML VIAL.NEB INH SCH ×3 (01:00→14:16)
[2021-01-01 01:20] VITALS: BP_SYST 139
--- NOTE | 2021-01-01 06:18 | NUR ---
PCR test done and will submit to lab
[2021-01-01] MEDS: IPRATROPIUM BROM 0.5 MG/2.5 ML VIAL.NEB (ATROVENT) INH SCH ×2 (07:00→14:15)
[2021-01-01] MEDS: BUDESONIDE 0.5 MG/2 ML AMPUL.NEB INH SCH (07:00)
[2021-01-01 07:58] VITALS: BP_SYST 145
--- NOTE | 2021-01-01 08:00 | NUR ---
am notes pt in maegan .a/ox2. denies any pain or sob. o2 2 l nasal canula saturation 93%. not in res distress. res even and unlabored. hob elevated. safety/fall precautions in place. .bed locked and in low position.call light within reach. needs attended. kept comfortable. will continue to monitor
[2021-01-01 08:21] LABS: BASOPHILS % (AUTO) 0.4 % (0.0-2.0); EOSINOPHILS % (AUTO) 0.1 % (0.0-4.0); HEMATOCRIT 44.7 % (36-48); LYMPHOCYTES # (AUTO) 0.5 K/uL (1.0-5.5); LYMPHOCYTES % (AUTO) 7.3 % (20.5-51.5); MEAN CORPUSCULAR HEMOGLOBIN 30 pg (27-31); MEAN CORPUSCULAR HGB CONC 31 % (32-36); MEAN CORPUSCULAR VOLUME 95 fL (79.0-98.0); MONOCYTES # (AUTO) 0.7 K/uL (0.0-1.0); MONOCYTES % (AUTO) 9.6 % (1.7-9.3); NEUTROPHILS % (AUTO) 82.6 % (40.0-70.0); PLATELET COUNT (AUTO) 176 K/uL (130-430); RED BLOOD CELL COUNT(AUTO) 4.71 MIL/uL (4.2-6.2); WHITE BLOOD COUNT (AUTO) 7.2 K/uL (4.8-10.8)
[2021-01-01 08:40] LABS: ALANINE AMINOTRANSFERASE 57 U/L (12-78); ALBUMIN 2.4 g/dL (3.4-4.8); ANION GAP 6 (5-15); ASPARTATE AMINOTRANSFERASE 26 U/L (10-37); CALCIUM 9.5 mg/dL (8.4-11.0); CHLORIDE 109 mmol/L (98-107); CREATININE 0.45 mg/dL (0.55-1.30); GLUCOSE 95 mg/dL (70-99); POTASSIUM 4.5 mmol/L (3.5-5.1); SODIUM SERUM 140 mmol/L (136-145); TOTAL BILIRUBIN 0.4 mg/dL (0.0-1.0); UREA NITROGEN, BLOOD 28 mg/dL (8-21)
[2021-01-01] MEDS: acetaZOLAMIDE 250 MG TABLET (DIAMOX) PO SCH ×2 (09:57→21:34)
[2021-01-01] MEDS: DIAZEPAM 5 MG TABLET (VALIUM) PO SCH ×3 (09:57→21:33)
[2021-01-01] MEDS: DOCUSATE SODIUM 100 MG CAPSULE PO SCH ×2 (09:58→21:32)
[2021-01-01] MEDS: LOSARTAN POTASSIUM 50 MG TABLET (COZAAR) PO SCH (09:58)
[2021-01-01] MEDS: guaiFENesin/DEXTROMETHORPHAN 10 ML UDC PO SCH ×2 (09:58→21:33)
[2021-01-01] MEDS: METOPROLOL TARTRATE 50 MG TABLET PO SCH ×2 (09:58→21:34)
[2021-01-01] MEDS: HEPARIN SODIUM,PORCINE 5,000 UNITS/ML VIAL SUBCUT SCH ×2 (10:00→21:36)
[2021-01-01 10:18] LABS: ERYTHROCYTE SEDIMENTATION RATE 1 MM/HR (0-20)
[2021-01-01 11:28] LABS: C-REACTIVE PROTEIN QUANT < 0.2 mg/dL (0-0.5)
--- NOTE | 2021-01-01 14:30 | NUR ---
ROUNDS PT STABLE NOT IN CUTE DISTRESS. PT CLEANED AND REPOSITIONED. NO S/S OF PAIN OR DISTRESS NOTED.WILL CONTINUE TO MONITOR
[2021-01-01 15:01] VITALS: BP_SYST 156
--- NOTE | 2021-01-01 15:17 | NUR ---
Referral sent to [facility] for SNF placement.[phone]
[2021-01-01 16:00] VITALS: BP_SYST 152
--- NOTE | 2021-01-01 16:45 | NUR ---
this RN went to change pt and give med with spencer tran. found on side table thremocoal lunch box pieces were torn and found on bed.asked pt if she ate it. pt denied . found pt was taking her pulse ox off and putting in her mouth. instructed pt not to put in the mouth. called dr hathaway and notified . received order for bilateral soft restraints for pt's safety. called vaughn griffin notified about it. daughter andres stated she does not want her mother to be in restraints right now. she will discuss with family and call back in 45 mints.charge nurse aixa notified.
--- NOTE | 2021-01-01 17:30 | NUR ---
PT IN BED RESTING COMFORTABLY. BLOOD SUGER 178 MG/DL. 2 UNIT REG INSULIN GIVEN PER SS. KEPT COMFORTABLE..CALL LIGHT WITHIN REACH.WILL CONTINUE TO MONITOR PT. CLOSELY
--- NOTE | 2021-01-01 18:30 | NUR ---
BLT SOFT WRIST RESTRAINTS RECEIVED CALL FROM KEYUR DAUGHTER. DAUGHTER SPOKE TO PT. DAUGHTER FAUSTINO AGREED FOR BILT SOFT WRIST RESTRAINTS. CHECKED PT . PT REMOVED HER PULSE OXIMETER./ NASAL CANNULA. REORIENTED PT. PLACED PT ON BILT SOFT WRIST RESTRAINTS TO PREVENT PULLING OUT TUBE AND LINES ORDER. EARLIER GEOFF RAYMUNDO INFORMED THAT PT WAS PUTTING BLANKET IN HER MOUTH/ THREW COFFEE MUG ON THE FLOOR..WILL CONITNUE TO MONITOR
--- NOTE | 2021-01-01 19:30 | NUR ---
CLOSING NOTES PT STABLE . NOT IN ACUTE DISTRESS. CONTINUE ON BILT SOFT WRIST RESTRAINTS. CIRCULATION WNL. NO S/S OF INJURY NOTED. SAFETY/FALL PRECAUTIONS IN PLACE. NO S/S OF DISTRESS NOTED. CALL LIGHT WITHIN REACH. REPORT GIVEN TO NIGHT NURSE..
[2021-01-01 20:00] VITALS: BP_SYST 164
[2021-01-01] MEDS: SENNOSIDES 8.6 MG TABLET PO SCH (21:32)
[2021-01-01] MEDS: cefTRIAXone 1 GM IVPB PREMIX 50 ML IV SCH (21:32)
[2021-01-02] VITALS (7 sets, daily range): BP systolic 108–168
[2021-01-02] MEDS ORDERED: ENALAPRIL MALEATE Non-Formular 5 MG TABLET PO ONE (01:30)
[2021-01-02] MEDS ORDERED: LISINOPRIL 10 MG TABLET (PRINIVIL) PO ONE (01:45)
[2021-01-02] MEDS: NORMAL SALINE 5 ML DISP.SYRIN IVF SCH ×3 (06:16→22:31)
[2021-01-02] MEDS: methylPREDNISolone SOD SUCC/PF 62.5 MG/ML VIAL IVP SCH (06:16)
[2021-01-02] MEDS: IPRATROPIUM BROM 0.5 MG/2.5 ML VIAL.NEB (ATROVENT) INH SCH ×3 (07:00→19:00)
[2021-01-02] MEDS: ALBUTEROL SULFATE 0.083% 2.5 MG/3 ML VIAL.NEB INH SCH ×3 (07:00→19:00)
[2021-01-02] MEDS: BUDESONIDE 0.5 MG/2 ML AMPUL.NEB INH SCH ×2 (07:00→19:00)
[2021-01-02 07:53] LABS: ANION GAP 6 (5-15); CALCIUM 9.1 mg/dL (8.4-11.0); CHLORIDE 105 mmol/L (98-107); CREATININE 0.46 mg/dL (0.55-1.30); GLUCOSE 153 mg/dL (70-99); POTASSIUM 4.1 mmol/L (3.5-5.1); SODIUM SERUM 136 mmol/L (136-145); UREA NITROGEN, BLOOD 25 mg/dL (8-21)
[2021-01-02 07:59] LABS: C-REACTIVE PROTEIN QUANT < 0.2 mg/dL (0-0.5)
--- NOTE | 2021-01-02 08:00 | NUR ---
OPENING NOTES AWAKE, ORIENTED TO NAME ONLY AT THIS TIME. IV ON LEFT HAND INTACT. NO SIGN OF PAIN. NO SHORTNESS OF BREATH AT 2 LITERS OXYGEN SUPPORT VIA NASAL CANNULA. FALL AND SAFETY CHECKS IN PLACE. CALL LIGHT WITHIN REACH. BLOOD PRESSURE IS ELEVATED AT THIS TIME. WILL MEDICATE.
[2021-01-02 08:01] LABS: BASOPHILS % (AUTO) 0.1 % (0.0-2.0); HEMATOCRIT 46.2 % (36-48); HEMOGLOBIN 14.6 g/dL (12.0-16.0); LYMPHOCYTES # (AUTO) 0.3 K/uL (1.0-5.5); LYMPHOCYTES % (AUTO) 5.6 % (20.5-51.5); MEAN CORPUSCULAR HEMOGLOBIN 30 pg (27-31); MEAN CORPUSCULAR HGB CONC 32 % (32-36); MEAN CORPUSCULAR VOLUME 94 fL (79.0-98.0); MONOCYTES # (AUTO) 0.1 K/uL (0.0-1.0); MONOCYTES % (AUTO) 2.2 % (1.7-9.3); NEUTROPHILS # (AUTO) 4.9 K/uL (1.8-7.7); NEUTROPHILS % (AUTO) 92.1 % (40.0-70.0); PLATELET COUNT (AUTO) 164 K/uL (130-430); RED CELL DISTRIBUTION WIDTH 13.6 % (9.0-15.0); WHITE BLOOD COUNT (AUTO) 5.3 K/uL (4.8-10.8)
--- NOTE | 2021-01-02 08:36 | NUR ---
PHYSICAL THERAPY CO-SIGN The Physical Therapy Progress Notes documented by Powertrain Design Engineer have been reviewed. Reviewed/Co-Signed by: Carlos Eldridge Documentation Done by: ALESSANDRA FLEMING PTA Addendum: 01/02/21 at 0836 by Carlos Eldridge PT Amended: Links added.
[2021-01-02] MEDS: guaiFENesin/DEXTROMETHORPHAN 10 ML UDC PO SCH ×2 (09:00→21:37)
[2021-01-02] MEDS: LOSARTAN POTASSIUM 50 MG TABLET (COZAAR) PO SCH (09:00)
[2021-01-02] MEDS: DIAZEPAM 5 MG TABLET (VALIUM) PO SCH ×3 (09:01→21:32)
[2021-01-02] MEDS: DOCUSATE SODIUM 100 MG CAPSULE PO SCH ×2 (09:01→21:32)
[2021-01-02] MEDS: acetaZOLAMIDE 250 MG TABLET (DIAMOX) PO SCH ×2 (09:01→21:33)
[2021-01-02] MEDS: METOPROLOL TARTRATE 50 MG TABLET PO SCH ×2 (09:01→21:36)
[2021-01-02] MEDS: HEPARIN SODIUM,PORCINE 5,000 UNITS/ML VIAL SUBCUT SCH ×2 (09:04→21:35)
--- NOTE | 2021-01-02 11:10 | NUR ---
ROUNDS SEEN BY DR. Kayley GALLOWAY AT BEDSIDE. AWARE THAT PATIENT'S BLOOD PRESSURE IS STILL INCREASED. HE SAID HE WILL ORDER PRN MEDICATION TO CONTROL BLOOD PRESSURE.
[2021-01-02] MEDS: INSULIN REGULAR, HUMAN 100 UNITS/ML, 10 ML VIAL (humuLIN R) SUBCUT PRN ×2 (12:00→17:57)
[2021-01-02 12:22] LABS: ERYTHROCYTE SEDIMENTATION RATE 1 MM/HR (0-20)
--- NOTE | 2021-01-02 13:43 | NUR ---
Nutrition F/U Admitting Diagnosis: Pneumonia Medical History Comment: PMH: CAD, COPD, and HTN per physician notes Pt also found w/ sepsis per physician notes 01/02 MD notes: Dementia, DM, Seizure disorder SARS-CoV-2 Ag (Rapid) Negative 12/26; (PCR) Pending 12/26 Subjective Information: Pt remains in isolation for COVID-[address] visit was deferred. Per EMR review, pt is on 2L NC, last BM 01/02 x1, abdomen is soft and nondistended. Pt is a/w discharge to SNF. David scale: 13. PO intake records indicate pt w/ fair oral intake and is meeting at least 50% of estimated needs. Current diet is appropriate. RD rec to consider appetite stimulant to optimize PO intake. Current Diet Order/Nutrition Support: Cardiac, CCHO standard carb-60 gm, Glucerna Shake TID x4 days Pertinent Medications: solu-medrol, senna, colace, SSI, Heparin Pertinent Labs 01/02 BUN 25 H, BG 153 H, POC BG 139 H Height: 5 feet 4.00 inches Weight: 119 pounds/ 53.532807 kilograms (12/28) --stable Body Mass Index: 20.42 kg/m2 Salyer/Adjusted Body Weight: 120#/55 kg Estimated Energy Expenditure (kcals/day) 3405-8628 kcal/day (30-35 kcal/kg CBW d/t sepsis) Estimated Protein Required (g/day) 81-108 gm/day (1.5-2 gm/kg CBW d/t sepsis) Estimated Fluid Required (l/day) 1.4-1.6 L/day (25-30 m/kg CBW for GERIAT maintenance ) Problem/Etiology/Signs/Symptoms Increased nutritional needs related to metabolic demands as evidenced by estimated nutritional requirements for sepsis. (*ongoing) Altered nutrition-related labs related to endocrine dysfunction as evidenced by elevated BG and POC BG lab values. (*ongoing) Expected Outcomes/Goals - Monitor appetite and PO intakes w/ goal of pt meeting at least 75% of estimated nutritional needs, labs trending WNL, normal GI function, and skin integrity/wt maintenance Dietitian Recommendations * Recommend continue: cardiac, CCHO standard carb-60 gm diet w/ Glucerna TID (ONS provides 660 kcal/day, 30 gm protein/day) * Encourage increase PO intakes * Consider an appetite stimulant. Follow Up Mod Risk: F/U in 3-5 days
[2021-01-02] MEDS ORDERED: methylPREDNISolone SOD SUCC 40 MG/ML VIAL IVP ONE (14:00)
--- NOTE | 2021-01-02 14:00 | NUR ---
Dietitian Recommendations * Recommend continue: cardiac, CCHO standard carb-60 gm diet w/ Glucerna TID (ONS provides 660 kcal/day, 30 gm protein/day) * Encourage increase PO intakes * Consider an appetite stimulant. Please see Nutrition F/U note for details. KARSTEN, SADI
--- NOTE | 2021-01-02 14:58 | NUR ---
ROUNDS INCONTINENT OF URINE. CLEANED AND REPOSITIONED. SAFETY CHECKS DONE. WILL MONITOR.
[2021-01-02] MEDS ORDERED: hydrALAZINE HCL 10 MG TABLET PO PRN (18:00)
--- NOTE | 2021-01-02 18:51 | NUR ---
CLOSING NOTES ASLEEP. STILL ON OXYGEN SUPPORT AT 2 LITERS VIA NASAL CANNULA. ALL NEEDS MET. FALL AND SAFETY CHECKS DONE. WILL ENDORSE TO NIGHT NURSE.
[2021-01-02] MEDS: SENNOSIDES 8.6 MG TABLET PO SCH (21:33)
[2021-01-02] MEDS: methylPREDNISolone SOD SUCC 40 MG/ML VIAL IVP SCH (21:47)
[2021-01-02] MEDS: INSULIN Lispro 100 UNITS/ML VIAL (humaLOG) SUBCUT SCH (22:30)
[2021-01-03] VITALS: BP_SYST 135
[2021-01-03] MEDS: NORMAL SALINE 5 ML DISP.SYRIN IVF SCH ×3 (05:11→22:03)
[2021-01-03] MEDS: ALBUTEROL SULFATE 0.083% 2.5 MG/3 ML VIAL.NEB INH SCH ×4 (06:06→19:00)
[2021-01-03] MEDS: IPRATROPIUM BROM 0.5 MG/2.5 ML VIAL.NEB (ATROVENT) INH SCH ×3 (06:07→14:13)
[2021-01-03] MEDS: BUDESONIDE 0.5 MG/2 ML AMPUL.NEB INH SCH (07:00)
[2021-01-03 07:33] LABS: BASOPHILS % (AUTO) 0.3 % (0.0-2.0); HEMOGLOBIN 16.4 g/dL (12.0-16.0); LYMPHOCYTES # (AUTO) 0.3 K/uL (1.0-5.5); LYMPHOCYTES % (AUTO) 4.7 % (20.5-51.5); MEAN CORPUSCULAR HEMOGLOBIN 30 pg (27-31); MEAN CORPUSCULAR HGB CONC 32 % (32-36); MEAN CORPUSCULAR VOLUME 94 fL (79.0-98.0); MONOCYTES # (AUTO) 0.4 K/uL (0.0-1.0); MONOCYTES % (AUTO) 6.2 % (1.7-9.3); NEUTROPHILS # (AUTO) 5.9 K/uL (1.8-7.7); NEUTROPHILS % (AUTO) 88.8 % (40.0-70.0); PLATELET COUNT (AUTO) 193 K/uL (130-430); RED BLOOD CELL COUNT(AUTO) 5.44 MIL/uL (4.2-6.2); RED CELL DISTRIBUTION WIDTH 13.6 % (9.0-15.0); WHITE BLOOD COUNT (AUTO) 6.6 K/uL (4.8-10.8)
[2021-01-03 08:00] VITALS: BP_SYST 166
--- NOTE | 2021-01-03 08:00 | NUR ---
Opening note Patient is resting in bed A&Ox1 responds to name difficult to reorient. IV is in place and patent, no signs or symptoms of respiratory distress, body language does nt express pain or discomfort. Unable to educate plan of care due to cognitive status. Bed is in lowest position, fall, aspiration, and droplet precautions are in place. Will continue to monitor.
[2021-01-03 08:16] LABS: ANION GAP 6 (5-15); CALCIUM 9.7 mg/dL (8.4-11.0); CHLORIDE 107 mmol/L (98-107); CREATININE 0.52 mg/dL (0.55-1.30); GLUCOSE 131 mg/dL (70-99); POTASSIUM 4.1 mmol/L (3.5-5.1); SODIUM SERUM 139 mmol/L (136-145); UREA NITROGEN, BLOOD 30 mg/dL (8-21)
[2021-01-03] MEDS: methylPREDNISolone SOD SUCC 40 MG/ML VIAL IVP SCH ×2 (08:31→21:57)
[2021-01-03] MEDS: guaiFENesin/DEXTROMETHORPHAN 10 ML UDC PO SCH ×2 (08:31→21:49)
[2021-01-03] MEDS: HEPARIN SODIUM,PORCINE 5,000 UNITS/ML VIAL SUBCUT SCH ×2 (08:32→21:57)
[2021-01-03] MEDS: acetaZOLAMIDE 250 MG TABLET (DIAMOX) PO SCH ×2 (08:32→21:49)
[2021-01-03] MEDS: DIAZEPAM 5 MG TABLET (VALIUM) PO SCH ×3 (08:33→21:44)
[2021-01-03] MEDS: DOCUSATE SODIUM 100 MG CAPSULE PO SCH ×2 (08:39→21:48)
[2021-01-03] MEDS: METOPROLOL TARTRATE 50 MG TABLET PO SCH ×2 (08:42→21:46)
[2021-01-03] MEDS: LOSARTAN POTASSIUM 50 MG TABLET (COZAAR) PO SCH (08:43)
[2021-01-03] MEDS: levoFLOXacin 250 MG TABLET PO SCH (10:54)
[2021-01-03] MEDS: INSULIN REGULAR, HUMAN 100 UNITS/ML, 10 ML VIAL (humuLIN R) SUBCUT PRN ×2 (10:57→17:05)
[2021-01-03 12:00] VITALS: BP_SYST 156
--- NOTE | 2021-01-03 12:00 | NUR ---
RN note Patient is resting in bed no signs or symptoms of distress. Patient is stable. Will continue to monitor.
[2021-01-03] MEDS ORDERED: METO-442 PO (13:29)
[2021-01-03] MEDS ORDERED: LEVO250T58 PO (13:29)
[2021-01-03] MEDS ORDERED: HYDR-4037 PO (13:29)
--- NOTE | 2021-01-03 15:37 | NUR ---
Patient is accepted at [facility]-we need the results of Covid PCR before they can accept the patient. Covid PCR test pending
[2021-01-03 16:00] VITALS: BP_SYST 145
--- NOTE | 2021-01-03 18:34 | NUR ---
Closing note Patient is resting in bed A&Ox1 responds to name difficult to reorient. IV is in place and patent, no signs or symptoms of respiratory distress, body language does nt express pain or discomfort. All needs were met. Bed is in lowest position, fall, aspiration, and droplet precautions are in place. Will endorse report to shift lab technician.
[2021-01-03 19:30] VITALS: BP_SYST 138
[2021-01-03 20:00] VITALS: BP_SYST 138
[2021-01-03] MEDS: SENNOSIDES 8.6 MG TABLET PO SCH (21:43)
[2021-01-03] MEDS: INSULIN Lispro 100 UNITS/ML VIAL (humaLOG) SUBCUT SCH (21:58)
[2021-01-04 00:34] VITALS: BP_SYST 141
[2021-01-04] MEDS: ALBUTEROL SULFATE 0.083% 2.5 MG/3 ML VIAL.NEB INH SCH ×3 (02:10→13:48)
[2021-01-04] MEDS: IPRATROPIUM BROM 0.5 MG/2.5 ML VIAL.NEB (ATROVENT) INH SCH ×3 (02:10→13:48)
[2021-01-04] MEDS: INSULIN REGULAR, HUMAN 100 UNITS/ML, 10 ML VIAL (humuLIN R) SUBCUT PRN ×4 (06:34→23:03)
[2021-01-04] MEDS: NORMAL SALINE 5 ML DISP.SYRIN IVF SCH ×3 (06:36→23:06)
[2021-01-04 06:45] LABS: BASOPHILS % (AUTO) 0.1 % (0.0-2.0); HEMATOCRIT 47.3 % (36-48); LYMPHOCYTES # (AUTO) 0.3 K/uL (1.0-5.5); MEAN CORPUSCULAR HEMOGLOBIN 30 pg (27-31); MEAN CORPUSCULAR HGB CONC 32 % (32-36); MEAN CORPUSCULAR VOLUME 93 fL (79.0-98.0); MONOCYTES # (AUTO) 0.2 K/uL (0.0-1.0); MONOCYTES % (AUTO) 3.8 % (1.7-9.3); NEUTROPHILS # (AUTO) 5.6 K/uL (1.8-7.7); NEUTROPHILS % (AUTO) 91.1 % (40.0-70.0); PLATELET COUNT (AUTO) 182 K/uL (130-430); RED BLOOD CELL COUNT(AUTO) 5.08 MIL/uL (4.2-6.2); RED CELL DISTRIBUTION WIDTH 13.6 % (9.0-15.0); WHITE BLOOD COUNT (AUTO) 6.2 K/uL (4.8-10.8)
[2021-01-04] MEDS: BUDESONIDE 0.5 MG/2 ML AMPUL.NEB INH SCH (07:00)
[2021-01-04 07:19] LABS: ANION GAP 5 (5-15); CALCIUM 9.3 mg/dL (8.4-11.0); CHLORIDE 105 mmol/L (98-107); CREATININE 0.45 mg/dL (0.55-1.30); GLUCOSE 166 mg/dL (70-99); SODIUM SERUM 135 mmol/L (136-145); UREA NITROGEN, BLOOD 32 mg/dL (8-21)
[2021-01-04 07:26] LABS: C-REACTIVE PROTEIN QUANT < 0.2 mg/dL (0-0.5)
[2021-01-04 08:43] VITALS: BP_SYST 127
[2021-01-04] MEDS: DOCUSATE SODIUM 100 MG CAPSULE PO SCH ×2 (09:58→22:54)
[2021-01-04] MEDS: methylPREDNISolone SOD SUCC 40 MG/ML VIAL IVP SCH ×2 (09:58→22:53)
[2021-01-04] MEDS: guaiFENesin/DEXTROMETHORPHAN 10 ML UDC PO SCH ×2 (09:58→22:54)
[2021-01-04] MEDS: levoFLOXacin 250 MG TABLET PO SCH (09:59)
[2021-01-04] MEDS: HEPARIN SODIUM,PORCINE 5,000 UNITS/ML VIAL SUBCUT SCH ×2 (09:59→22:57)
[2021-01-04] MEDS: LOSARTAN POTASSIUM 50 MG TABLET (COZAAR) PO SCH (10:00)
[2021-01-04] MEDS: METOPROLOL TARTRATE 50 MG TABLET PO SCH ×2 (10:01→22:55)
[2021-01-04] MEDS: acetaZOLAMIDE 250 MG TABLET (DIAMOX) PO SCH ×2 (10:16→22:54)
--- NOTE | 2021-01-04 10:46 | NUR ---
Opening note Patient is resting in bed A&Ox2 awake and alert responds to name and light stimuli. IV is in place and patent, no signs or symptoms of respiratory distress, patient denies any complaint of pain or discomfort. Unable to educate plan of care due to cognitive status. Bed is in lowest position, fall, aspiration, and droplet precautions are in place. Will continue to monitor.
[2021-01-04 12:00] VITALS: BP_SYST 113
[2021-01-04 12:00] LABS: ERYTHROCYTE SEDIMENTATION RATE 1 MM/HR (0-20)
[2021-01-04] MEDS: DIAZEPAM 5 MG TABLET (VALIUM) PO SCH ×2 (14:26→22:55)
--- NOTE | 2021-01-04 16:00 | NUR ---
IV RE-INSERTION: Complaining of pain to IV site. Restarted on right upper arm 22G. Successful after 2 attempts. Will observe for any signs of infiltration.
[2021-01-04 16:03] VITALS: BP_SYST 131
--- NOTE | 2021-01-04 18:06 | NUR ---
Patient not accepted at [facility] SNF-Spoke w/ Daughter [phone]-she agreed to SNF placement near [place]-referral sent to [facility] Brunner,[facility] and [facility]
--- NOTE | 2021-01-04 18:26 | NUR ---
Closing note Patient is resting in bed A&Ox2 awake and alert responds to name and light stimuli. IV is in place and patent, no signs or symptoms of respiratory distress, patient denies any complaint of pain or discomfort. All needs were met. Bed is in lowest position, fall, and aspiration precautions are in place. Will endorse report to material handler 2nd shift.
[2021-01-04 20:30] VITALS: BP_SYST 145
--- NOTE | 2021-01-04 20:35 | NUR ---
Patient awake verbally Responsive incontinent of urine , partial bed bath given kept clean also dry as needed / monitor .
[2021-01-04] MEDS: SENNOSIDES 8.6 MG TABLET PO SCH (21:00)
[2021-01-04] MEDS: D5/0.45 NS 1,000 ML IV SCH (22:53)
[2021-01-04] MEDS: INSULIN Lispro 100 UNITS/ML VIAL (humaLOG) SUBCUT SCH (23:04)
--- NOTE | 2021-01-05 00:11 | NUR ---
Patient Resting on Nasal cannula 2 LPM chest movement symmetrical 02 SAT 97 % FALL MEASURES IMPLEMENTED bed to low position .
[2021-01-05 00:55] VITALS: BP_SYST 153
--- NOTE | 2021-01-05 01:43 | NUR ---
DR ANGELITA SHIELDS here to see patient .
--- NOTE | 2021-01-05 05:26 | NUR ---
Patient Resting awake on and off chest movement symmetrical FALL MEASURES EFFECTIVE assist for position change tolerated .
[2021-01-05] MEDS: D5/0.45 NS 1,000 ML IV SCH (06:21)
[2021-01-05] MEDS: NORMAL SALINE 5 ML DISP.SYRIN IVF SCH (06:22)
[2021-01-05] MEDS: INSULIN REGULAR, HUMAN 100 UNITS/ML, 10 ML VIAL (humuLIN R) SUBCUT PRN ×2 (06:30→11:47)
[2021-01-05 06:52] LABS: BASOPHILS % (AUTO) 0.3 % (0.0-2.0); HEMATOCRIT 45.1 % (36-48); HEMOGLOBIN 14.4 g/dL (12.0-16.0); LYMPHOCYTES # (AUTO) 0.5 K/uL (1.0-5.5); LYMPHOCYTES % (AUTO) 8.4 % (20.5-51.5); MEAN CORPUSCULAR HEMOGLOBIN 30 pg (27-31); MEAN CORPUSCULAR HGB CONC 32 % (32-36); MEAN CORPUSCULAR VOLUME 94 fL (79.0-98.0); MONOCYTES # (AUTO) 0.2 K/uL (0.0-1.0); MONOCYTES % (AUTO) 4.1 % (1.7-9.3); NEUTROPHILS # (AUTO) 4.7 K/uL (1.8-7.7); NEUTROPHILS % (AUTO) 87.2 % (40.0-70.0); PLATELET COUNT (AUTO) 165 K/uL (130-430); RED BLOOD CELL COUNT(AUTO) 4.82 MIL/uL (4.2-6.2); RED CELL DISTRIBUTION WIDTH 13.9 % (9.0-15.0); WHITE BLOOD COUNT (AUTO) 5.4 K/uL (4.8-10.8)
[2021-01-05] MEDS: ALBUTEROL SULFATE 0.083% 2.5 MG/3 ML VIAL.NEB INH SCH (07:33)
[2021-01-05] MEDS: IPRATROPIUM BROM 0.5 MG/2.5 ML VIAL.NEB (ATROVENT) INH SCH (07:33)
[2021-01-05] MEDS: BUDESONIDE 0.5 MG/2 ML AMPUL.NEB INH SCH (07:33)
[2021-01-05 08:00] VITALS: BP_SYST 130
--- NOTE | 2021-01-05 08:00 | NUR ---
pt awake,alert,forgetful afebrile,vss,O2 sat 97% HHN treatment given per RT,pt tolerated well needs attended,call light & personal items within pt reach,safety maintained.
[2021-01-05 08:07] LABS: ALANINE AMINOTRANSFERASE 27 U/L (12-78); ALBUMIN 2.7 g/dL (3.4-4.8); ANION GAP 6 (5-15); ASPARTATE AMINOTRANSFERASE 11 U/L (10-37); CALCIUM 8.9 mg/dL (8.4-11.0); CHLORIDE 106 mmol/L (98-107); CREATININE 0.41 mg/dL (0.55-1.30); GLUCOSE 200 mg/dL (70-99); SODIUM SERUM 136 mmol/L (136-145); TOTAL BILIRUBIN 0.5 mg/dL (0.0-1.0); UREA NITROGEN, BLOOD 25 mg/dL (8-21)
[2021-01-05] MEDS: guaiFENesin/DEXTROMETHORPHAN 10 ML UDC PO SCH (08:49)
[2021-01-05] MEDS: methylPREDNISolone SOD SUCC 40 MG/ML VIAL IVP SCH (08:49)
[2021-01-05] MEDS: METOPROLOL TARTRATE 50 MG TABLET PO SCH (08:50)
[2021-01-05] MEDS: DOCUSATE SODIUM 100 MG CAPSULE PO SCH (08:50)
[2021-01-05] MEDS: LOSARTAN POTASSIUM 50 MG TABLET (COZAAR) PO SCH (08:51)
[2021-01-05] MEDS: DIAZEPAM 5 MG TABLET (VALIUM) PO SCH (08:51)
[2021-01-05] MEDS: HEPARIN SODIUM,PORCINE 5,000 UNITS/ML VIAL SUBCUT SCH (08:53)
[2021-01-05] MEDS: levoFLOXacin 250 MG TABLET PO SCH (09:45)
[2021-01-05] MEDS: acetaZOLAMIDE 250 MG TABLET (DIAMOX) PO SCH (09:45)
[2021-01-05 09:49] LABS: C-REACTIVE PROTEIN QUANT < 0.2 mg/dL (0-0.5)
--- NOTE | 2021-01-05 10:16 | NUR ---
caser up came and spoke to pt at bedside,and got bed in SNF, called and left message with zara in exchange
[2021-01-05 10:35] VITALS: BP_SYST 137
--- NOTE | 2021-01-05 10:39 | NUR ---
DISCHARGE PLANNING Received call from Izabella at [facility], direct # [phone], accepted pt to room 10B, # for report [phone], anytime. Order for snf. Spoke with pt at bedside and agreeable with SNF, informed that [place] has accepted. Pt agreeable with SNF, states has been to [facility] & does not want to go back there, agreeable with [facility]. [facility] does not want me to call to inform family. Received dc order, called & placed product picker with [employer] for 1330 product picker. Updated pt's nurse. packet to nsg station. [facility], rm 10B, report [phone] [employer], product picker at 1330, ph [phone]
[2021-01-05 11:06] LABS: ERYTHROCYTE SEDIMENTATION RATE 1 MM/HR (0-20)
[2021-01-05 11:09] VITALS: BP_SYST 130
[2021-01-05 12:00] VITALS: BP_SYST 153
--- NOTE | 2021-01-05 12:09 | NUR ---
received d/c to SNF order from .report called and endorsed to nurse shafer in [facility]
--- NOTE | 2021-01-05 12:55 | NUR ---
Patient refused to informed the family member regarding her transfer to [facility] , and unable to sign the acknowledgement paper.,but she agreed to transfer to [facility].
--- NOTE | 2021-01-05 13:20 | NUR ---
D/C IV,D/C ONLINE MARKETING ANALYST.DAUGHTER FAUSTINO CALLED AND NOTIFIED OF PT TRANSFER TO [facility] AND GIVEN SNF PHONE NUMBER TO CONTRACT,VSS.LEAVING VIA AMBULACE,ALL BELONGINGS WITH PT OWN WALKER SENT WITH PT UPON D/C.
[2021-01-06] MEDS ORDERED: predniSONE 20 MG TABLET PO SCH (09:00)
== END 2021-01-05 13:30 | DRG 871 ==
LOC: SED 18:43 → STU 21:44
PROVIDERS: ADMIT Preventive Medicine Preventive Medicine/Occupational Environmental Medicine; ATTEND Preventive Medicine Preventive Medicine/Occupational Environmental Medicine
PROC: 5A09357 Assistance with Respiratory Ventilation, Less than 24 Consecutive Hours, Continuous Positive Airway Pressure (ICD-10-PCS; 2020-12-27)
PROC: 5A09357 Assistance with Respiratory Ventilation, Less than 24 Consecutive Hours, Continuous Positive Airway Pressure (ICD-10-PCS; principal; 2021-01-01)
DX: A41.9 Sepsis, unspecified organism (principal); I50.43 Acute on chronic combined systolic (congestive) and diastolic (congestive) heart failure; J96.21 Acute and chronic respiratory failure with hypoxia; E43 Unspecified severe protein-calorie malnutrition; N17.9 Acute kidney failure, unspecified; J44.1 Chronic obstructive pulmonary disease with (acute) exacerbation; E87.0 Hyperosmolality and hypernatremia; I16.9 Hypertensive crisis, unspecified; E87.1 Hypo-osmolality and hyponatremia; E87.6 Hypokalemia; I25.10 Atherosclerotic heart disease of native coronary artery without angina pectoris; E11.65 Type 2 diabetes mellitus with hyperglycemia; I11.0 Hypertensive heart disease with heart failure; G89.4 Chronic pain syndrome; G40.909 Epilepsy, unspecified, not intractable, without status epilepticus; E87.5 Hyperkalemia; F03.90 Unspecified dementia, unspecified severity, without behavioral disturbance, psychotic disturbance, mood disturbance, and anxiety; I27.20 Pulmonary hypertension, unspecified; Z20.822 Contact with and (suspected) exposure to COVID-19; D64.9 Anemia, unspecified; E78.5 Hyperlipidemia, unspecified; Z88.5 Allergy status to narcotic agent; Z79.899 Other long term (current) drug therapy; Z86.73 Personal history of transient ischemic attack (TIA), and cerebral infarction without residual deficits; Z87.891 Personal history of nicotine dependence; Z79.01 Long term (current) use of anticoagulants; Z90.710 Acquired absence of both cervix and uterus; Z68.20 Body mass index [BMI] 20.0-20.9, adult
CPT/HCPCS: 36415; 36600; 71045; 80048; 80053; 81003; 82550; 82728; 82803-TC; 82962; 83605; 83615; 83735; 83880; 84100; 84484; 85025; 85379; 85384; 85610-TC; 85651-TC; 85730-TC; 86140; 87040-TC; 87086; 93005; 93306; 94640; 94660; 94760; 96365; 96367; 96375; 97110-GP; 97530-GP; 99285; G0378; J0456; J0696; J1030; J1100; J1644; J1815; J2060; J2405; J2930; J7050; J7613; J7626; U0003

== ENCOUNTER 2021-03-06 07:03 | Inpatient (IN) | payer OTHER, MEDICAID, SELFPAY ==
[~2021-03-06] VITALS: Ht 162.6 cm; Wt 43.7 kg
[~2021-03-06 07:03] MED LIST changes: +ACET325T PO; +BUDE6HFA INH; +DIA250 PO; +DOCU-156 PO; +HYDR-4037 PO; +INSU100V42; +IRBE150T48 PO; +LEVO250T58 PO; +METO50TA7 PO; +NITR0.4T47 SL; +SENN8.6T19 PO; +SPIRIVA INH; -ZIT250 PO
[2021-03-06 07:05] VITALS: BP_SYST 145
[2021-03-06 08:09] LABS: BASOPHILS # (AUTO) 0.1 K/uL (0.0-0.2); BASOPHILS % (AUTO) 0.7 % (0.0-2.0); EOSINOPHILS % (AUTO) 0.1 % (0.0-4.0); HEMATOCRIT 43.8 % (36-48); HEMOGLOBIN 13.6 g/dL (12.0-16.0); LYMPHOCYTES # (AUTO) 0.4 K/uL (1.0-5.5); LYMPHOCYTES % (AUTO) 5.7 % (20.5-51.5); MEAN CORPUSCULAR HEMOGLOBIN 29 pg (27-31); MEAN CORPUSCULAR HGB CONC 31 % (32-36); MEAN CORPUSCULAR VOLUME 92 fL (79.0-98.0); MONOCYTES # (AUTO) 0.1 K/uL (0.0-1.0); NEUTROPHILS % (AUTO) 92.5 % (40.0-70.0); PLATELET COUNT (AUTO) 213 K/uL (130-430); RED BLOOD CELL COUNT(AUTO) 4.74 MIL/uL (4.2-6.2); RED CELL DISTRIBUTION WIDTH 15.5 % (9.0-15.0); WHITE BLOOD COUNT (AUTO) 7.6 K/uL (4.8-10.8)
[2021-03-06 08:21] LABS: ANION GAP 5 (5-15); CALCIUM 10.9 mg/dL (8.4-11.0); CHLORIDE 100 mmol/L (98-107); CREATININE 0.58 mg/dL (0.55-1.30); GLUCOSE 142 mg/dL (70-99); SODIUM SERUM 140 mmol/L (136-145); UREA NITROGEN, BLOOD 15 mg/dL (8-21)
[2021-03-06 08:26] LABS: ALANINE AMINOTRANSFERASE 24 U/L (12-78); ALBUMIN 4.3 g/dL (3.4-4.8); ASPARTATE AMINOTRANSFERASE 28 U/L (10-37); TOTAL BILIRUBIN 0.6 mg/dL (0.0-1.0)
[2021-03-06] MEDS ORDERED: ASPIRIN 81 MG TAB.CHEW PO ONE (09:15)
[2021-03-06 10:53] VITALS: BP_SYST 153
[2021-03-06 20:45] VITALS: BP_SYST 117
[2021-03-07] VITALS (7 sets, daily range): BP systolic 112–143
[2021-03-07 06:32] LABS: BASOPHILS % (AUTO) 0.2 % (0.0-2.0); EOSINOPHILS % (AUTO) 0.2 % (0.0-4.0); HEMATOCRIT 37.5 % (36-48); HEMOGLOBIN 11.6 g/dL (12.0-16.0); LYMPHOCYTES % (AUTO) 12.3 % (20.5-51.5); MEAN CORPUSCULAR HEMOGLOBIN 28 pg (27-31); MEAN CORPUSCULAR HGB CONC 31 % (32-36); MEAN CORPUSCULAR VOLUME 92 fL (79.0-98.0); MONOCYTES # (AUTO) 0.8 K/uL (0.0-1.0); MONOCYTES % (AUTO) 10.2 % (1.7-9.3); NEUTROPHILS # (AUTO) 6.3 K/uL (1.8-7.7); NEUTROPHILS % (AUTO) 77.1 % (40.0-70.0); PLATELET COUNT (AUTO) 197 K/uL (130-430); RED BLOOD CELL COUNT(AUTO) 4.08 MIL/uL (4.2-6.2); RED CELL DISTRIBUTION WIDTH 15.7 % (9.0-15.0); WHITE BLOOD COUNT (AUTO) 8.2 K/uL (4.8-10.8)
[2021-03-07] MEDS ORDERED: DIAZEPAM 5 MG TABLET (VALIUM) PO ONE (09:00)
[2021-03-07] MEDS ORDERED: TIOTROPIUM BROMIDE 18 mcg/INHALATION (CAPSULE) INH SCH (09:00)
[2021-03-07] MEDS ORDERED: METOPROLOL SUCCINATE 50 MG TAB.SR.24H (TOPROL XL) PO ONE (09:00)
[2021-03-07] MEDS ORDERED: DOCUSATE SODIUM 100 MG CAPSULE PO ONE (09:00)
[2021-03-07] MEDS ORDERED: ASPIRIN 81 MG TAB.CHEW PO ONE (09:00)
[2021-03-07 09:47] LABS: ANION GAP 8 (5-15); CALCIUM 8.9 mg/dL (8.4-11.0); CHLORIDE 105 mmol/L (98-107); CREATININE 0.46 mg/dL (0.55-1.30); GLUCOSE 101 mg/dL (70-99); POTASSIUM 3.7 mmol/L (3.5-5.1); SODIUM SERUM 146 mmol/L (136-145); UREA NITROGEN, BLOOD 15 mg/dL (8-21)
[2021-03-07 09:48] LABS: CHOLESTEROL 109 mg/dL (<200); THYROID STIMULATING HORMONE 0.01 uIu/mL (0.36-3.74); TRIGLYCERIDES 68 mg/dL (30-150)
[2021-03-07 09:49] LABS: HDL CHOLESTEROL 45 mg/dL (>55); LDL CHOLESTEROL 55 mg/dL (<100)
[2021-03-07] MEDS: IPRATROPIUM/ALBUTEROL SULFATE 3 ML AMPUL.NEB (DUONEB) INH SCH ×4 (10:29→23:08)
[2021-03-07] MEDS: BUDESONIDE 0.5 MG/2 ML AMPUL.NEB INH SCH ×2 (10:33→19:51)
[2021-03-07] MEDS ORDERED: BUDESONIDE 0.5 MG/2 ML AMPUL.NEB ONE (10:39)
[2021-03-07] MEDS ORDERED: PANTOPRAZOLE SODIUM 40 MG/VIAL (PROTONIX) IVP ONE (13:30)
[2021-03-07] MEDS ORDERED: FUROSEMIDE 40 MG/4 ML VIAL IVP ONE (13:30)
[2021-03-07] MEDS: D5/0.45 NS 1,000 ML IV SCH (17:52)
[2021-03-07] MEDS: DOCUSATE SODIUM 100 MG CAPSULE PO SCH (21:08)
[2021-03-07] MEDS: SENNOSIDES 8.6 MG TABLET PO SCH (21:08)
[2021-03-07] MEDS: DIAZEPAM 5 MG TABLET (VALIUM) PO SCH (21:09)
[2021-03-07] MEDS ORDERED: AZITHROMYCIN 500 MG/VIAL (ZITHROMAX) IV ONE (21:25)
[2021-03-07] MEDS: AZITHROMYCIN 500 MG in NS 250 ML IV SCH (21:45)
[2021-03-08 01:28] VITALS: BP_SYST 96
[2021-03-08] MEDS: IPRATROPIUM/ALBUTEROL SULFATE 3 ML AMPUL.NEB (DUONEB) INH SCH ×6 (03:24→23:07)
[2021-03-08] MEDS: ACETAMINOPHEN 325 MG TABLET PO PRN ×2 (04:40→22:18)
[2021-03-08 07:05] LABS: BASOPHILS % (AUTO) 0.3 % (0.0-2.0); EOSINOPHILS % (AUTO) 0.7 % (0.0-4.0); HEMATOCRIT 36.6 % (36-48); HEMOGLOBIN 11.4 g/dL (12.0-16.0); LYMPHOCYTES # (AUTO) 1.5 K/uL (1.0-5.5); LYMPHOCYTES % (AUTO) 23.3 % (20.5-51.5); MEAN CORPUSCULAR HEMOGLOBIN 28 pg (27-31); MEAN CORPUSCULAR HGB CONC 31 % (32-36); MEAN CORPUSCULAR VOLUME 91 fL (79.0-98.0); MONOCYTES # (AUTO) 0.9 K/uL (0.0-1.0); NEUTROPHILS % (AUTO) 61.7 % (40.0-70.0); PLATELET COUNT (AUTO) 168 K/uL (130-430); RED CELL DISTRIBUTION WIDTH 15.4 % (9.0-15.0); WHITE BLOOD COUNT (AUTO) 6.5 K/uL (4.8-10.8)
[2021-03-08] MEDS: BUDESONIDE 0.5 MG/2 ML AMPUL.NEB INH SCH ×2 (07:14→19:13)
[2021-03-08 07:49] LABS: ALANINE AMINOTRANSFERASE 20 U/L (12-78); ALBUMIN 2.7 g/dL (3.4-4.8); ANION GAP 2 (5-15); ASPARTATE AMINOTRANSFERASE 12 U/L (10-37); CALCIUM 8.6 mg/dL (8.4-11.0); CHLORIDE 100 mmol/L (98-107); CREATININE 0.64 mg/dL (0.55-1.30); GLUCOSE 145 mg/dL (70-99); POTASSIUM 3.2 mmol/L (3.5-5.1); SODIUM SERUM 141 mmol/L (136-145); TOTAL BILIRUBIN 0.4 mg/dL (0.0-1.0); UREA NITROGEN, BLOOD 14 mg/dL (8-21)
[2021-03-08 08:24] VITALS: BP_SYST 110
[2021-03-08] MEDS ORDERED: FUROSEMIDE 40 MG/4 ML VIAL IVP SCH (09:00)
[2021-03-08] MEDS: PANTOPRAZOLE SODIUM 40 MG/VIAL (PROTONIX) IVP SCH (09:12)
[2021-03-08] MEDS: ASPIRIN 81 MG TAB.CHEW PO SCH (09:12)
[2021-03-08] MEDS: FUROSEMIDE 20 MG TABLET PO SCH (09:13)
[2021-03-08] MEDS: METOPROLOL SUCCINATE 50 MG TAB.SR.24H (TOPROL XL) PO SCH (09:13)
[2021-03-08] MEDS: DOCUSATE SODIUM 100 MG CAPSULE PO SCH ×2 (09:14→22:17)
[2021-03-08] MEDS: DIAZEPAM 5 MG TABLET (VALIUM) PO SCH ×2 (09:14→22:17)
[2021-03-08 12:08] VITALS: BP_SYST 107
[2021-03-08] MEDS: D5/0.45 NS 1,000 ML IV SCH (12:15)
[2021-03-08 16:00] VITALS: BP_SYST 106
[2021-03-08 21:30] VITALS: BP_SYST 127
[2021-03-08] MEDS: AZITHROMYCIN 500 MG in NS 250 ML IV SCH (22:16)
[2021-03-08] MEDS: SENNOSIDES 8.6 MG TABLET PO SCH (22:16)
[2021-03-09 01:51] VITALS: BP_SYST 122
[2021-03-09] MEDS: IPRATROPIUM/ALBUTEROL SULFATE 3 ML AMPUL.NEB (DUONEB) INH SCH ×3 (04:08→11:34)
[2021-03-09 06:34] LABS: BASOPHILS % (AUTO) 0.4 % (0.0-2.0); EOSINOPHILS # (AUTO) 0.1 K/uL (0.0-0.4); HEMATOCRIT 37.5 % (36-48); HEMOGLOBIN 11.6 g/dL (12.0-16.0); LYMPHOCYTES # (AUTO) 1.8 K/uL (1.0-5.5); LYMPHOCYTES % (AUTO) 25.7 % (20.5-51.5); MEAN CORPUSCULAR HEMOGLOBIN 28 pg (27-31); MEAN CORPUSCULAR HGB CONC 31 % (32-36); MEAN CORPUSCULAR VOLUME 91 fL (79.0-98.0); MONOCYTES # (AUTO) 0.8 K/uL (0.0-1.0); MONOCYTES % (AUTO) 10.8 % (1.7-9.3); NEUTROPHILS # (AUTO) 4.3 K/uL (1.8-7.7); NEUTROPHILS % (AUTO) 61.1 % (40.0-70.0); PLATELET COUNT (AUTO) 159 K/uL (130-430); RED BLOOD CELL COUNT(AUTO) 4.12 MIL/uL (4.2-6.2); RED CELL DISTRIBUTION WIDTH 15.5 % (9.0-15.0)
[2021-03-09 06:44] LABS: ANION GAP 1 (5-15); CALCIUM 8.9 mg/dL (8.4-11.0); CHLORIDE 98 mmol/L (98-107); GLUCOSE 110 mg/dL (70-99); POTASSIUM 3.9 mmol/L (3.5-5.1); SODIUM SERUM 139 mmol/L (136-145); UREA NITROGEN, BLOOD 13 mg/dL (8-21)
[2021-03-09] MEDS: BUDESONIDE 0.5 MG/2 ML AMPUL.NEB INH SCH (07:00)
[2021-03-09] MEDS: PANTOPRAZOLE SODIUM 40 MG/VIAL (PROTONIX) IVP SCH (08:24)
[2021-03-09] MEDS: ASPIRIN 81 MG TAB.CHEW PO SCH (08:26)
[2021-03-09] MEDS: DOCUSATE SODIUM 100 MG CAPSULE PO SCH (08:27)
[2021-03-09] MEDS: DIAZEPAM 5 MG TABLET (VALIUM) PO SCH (08:28)
[2021-03-09] MEDS: METOPROLOL SUCCINATE 50 MG TAB.SR.24H (TOPROL XL) PO SCH (08:29)
[2021-03-09] MEDS: FUROSEMIDE 20 MG TABLET PO SCH (08:29)
[2021-03-09 11:53] VITALS: BP_SYST 128
[2021-03-09 12:00] VITALS: BP_SYST 133
[2021-03-09] MEDS ORDERED: traMADol HCL HCL 50 MG TABLET (ULTRAM) PO SCH (12:00)
== END 2021-03-09 13:55 | DRG 73 ==
LOC: SED 07:03 → STU 09:46
PROVIDERS: ADMIT Internal Medicine; ATTEND Internal Medicine
PROC: 5A09357 Assistance with Respiratory Ventilation, Less than 24 Consecutive Hours, Continuous Positive Airway Pressure (ICD-10-PCS; principal; 2021-03-07)
DX: G90.8 Other disorders of autonomic nervous system (principal); I21.A1 Myocardial infarction type 2; J96.00 Acute respiratory failure, unspecified whether with hypoxia or hypercapnia; F03.90 Unspecified dementia, unspecified severity, without behavioral disturbance, psychotic disturbance, mood disturbance, and anxiety; F17.200 Nicotine dependence, unspecified, uncomplicated; F41.9 Anxiety disorder, unspecified; G89.4 Chronic pain syndrome; I10 Essential (primary) hypertension; S09.90XA Unspecified injury of head, initial encounter; W18.39XA Other fall on same level, initial encounter; Z53.20 Procedure and treatment not carried out because of patient's decision for unspecified reasons; Z20.822 Contact with and (suspected) exposure to COVID-19; Z88.5 Allergy status to narcotic agent; Z79.899 Other long term (current) drug therapy; Y93.89 Activity, other specified; Y92.89 Other specified places as the place of occurrence of the external cause; Y99.8 Other external cause status; Z86.73 Personal history of transient ischemic attack (TIA), and cerebral infarction without residual deficits; Z90.710 Acquired absence of both cervix and uterus
CPT/HCPCS: 36415; 36600; 70450-TC; 71045; 72100-TC; 76376; 80048; 80053; 80061; 82803-TC; 83880; 84443; 84484; 85025; 85379; 93005; 94640; 94660; 94760; 97110-GP; 97116-GP; 97530-GP; 99285; C9113; G0378; J0456; J1940; J7050; J7626

== ENCOUNTER 2021-03-27 08:18 | Inpatient (IN) | payer OTHER, MEDICAID, SELFPAY ==
[~2021-03-27] VITALS: Ht 149.9 cm; Wt 52.2 kg
[~2021-03-27 08:18] MED LIST changes: -ALBU17AE26 IH; -DIA250 PO; -DIAZ10TA PO; -HYDR-4037 PO; -INSU100V42; -IPRA30SP NS; -IPRA4AER INH; -IRBE150T48 PO; -LEVO250T58 PO; -METO-442 PO; -NITR0.4T47 SL; -PRED10TA PO
[2021-03-27 08:20] VITALS: BP_SYST 133
--- NOTE | 2021-03-27 08:31 | NUR ---
Patient to ER bed 5 to gown for evaluation. Side rails up. Report given to Frances LEA.
--- NOTE | 2021-03-27 08:46 | NUR ---
RECEIVED PT, AWAKE, ALERT, ORIENTED TO NAME, PLACE, AND SITUATION. VERBALIZES PAIN TO HER ANTERIOR CHEST WALL, NON RADIATING. DENIES ANY FEVERS/CHILLS, NO N/V/D. PT'S HR AT 134BPM. SL TO LEFT AC, 100CC FLUIDS INFUSED FROM PARADEMIC. SAFETY MEASURES IN PLACE. PT LIVES ALONE AT HOME, DTR LIVES IN SAME APT COMPLEX AND SEES HER EVERY DAY. PT IN NAD, WILL CONT TO MONITOR.
[2021-03-27 09:07] LABS: BASOPHILS % (AUTO) 0.5 % (0.0-2.0); EOSINOPHILS # (AUTO) 0.1 K/uL (0.0-0.4); EOSINOPHILS % (AUTO) 2.5 % (0.0-4.0); HEMATOCRIT 36.7 % (36-48); HEMOGLOBIN 11.4 g/dL (12.0-16.0); LYMPHOCYTES % (AUTO) 19.3 % (20.5-51.5); MEAN CORPUSCULAR HEMOGLOBIN 28 pg (27-31); MEAN CORPUSCULAR HGB CONC 31 % (32-36); MEAN CORPUSCULAR VOLUME 89 fL (79.0-98.0); MONOCYTES # (AUTO) 0.5 K/uL (0.0-1.0); MONOCYTES % (AUTO) 8.7 % (1.7-9.3); NEUTROPHILS # (AUTO) 3.7 K/uL (1.8-7.7); PLATELET COUNT (AUTO) 207 K/uL (130-430); RED BLOOD CELL COUNT(AUTO) 4.12 MIL/uL (4.2-6.2); RED CELL DISTRIBUTION WIDTH 17.3 % (9.0-15.0); WHITE BLOOD COUNT (AUTO) 5.3 K/uL (4.8-10.8)
--- NOTE | 2021-03-27 09:09 | NUR ---
DTR HALEIGH RETANA CALLED FOR AN UPDATE ON MOTHERS CONDITION. TAMIKA WAS JUST DISCHARGED FROM THIS HOSPITAL SEVERAL WEEKS ASO FOR SOB. #[phone]
[2021-03-27 09:19] LABS: ANION GAP 1 (5-15); CALCIUM 9.1 mg/dL (8.4-11.0); CHLORIDE 108 mmol/L (98-107); CREATININE 0.75 mg/dL (0.55-1.30); GLUCOSE 117 mg/dL (70-99); POTASSIUM 4.1 mmol/L (3.5-5.1); SODIUM SERUM 145 mmol/L (136-145); UREA NITROGEN, BLOOD 25 mg/dL (8-21)
[2021-03-27 09:25] LABS: ALANINE AMINOTRANSFERASE 16 U/L (12-78); ALBUMIN 3.2 g/dL (3.4-4.8); ASPARTATE AMINOTRANSFERASE 15 U/L (10-37); TOTAL BILIRUBIN 0.3 mg/dL (0.0-1.0)
[2021-03-27] MEDS ORDERED: DOCUSATE SODIUM 100 MG CAPSULE PO PRN (10:15)
[2021-03-27] MEDS ORDERED: ONDANSETRON HCL 4 MG/2 ML VIAL IVP PRN (10:15)
[2021-03-27] MEDS ORDERED: ZOLPIDEM TARTRATE 5 MG TABLET PO PRN (10:15)
[2021-03-27] MEDS ORDERED: MUPIROCIN 2% TOPICAL OINTMENT 22 GM NS PRN (10:15)
[2021-03-27] MEDS ORDERED: MAGNESIUM SULFATE 50 ML IV PRN (10:15)
[2021-03-27] MEDS ORDERED: POTASSIUM CHLORIDE 20 MEQ TAB.PRT.SR PO PRN (10:15)
--- NOTE | 2021-03-27 11:29 | NUR ---
No acute chnages in condition, pt stablle for transfer. Negative for Covid.
--- NOTE | 2021-03-27 12:10 | NUR ---
Admission Note Received patient from ER with diagnosis of sob/tachycardia. Initial Plan of Care discussed-patient verbalized understanding. . Oriented to room, call light, pain management and safety.
--- NOTE | 2021-03-27 12:17 | NUR ---
Patient will be admitted to care of DR CLOUD. Admitted to unit. Will go to room . Belongings list completed. Complete and up to date summary report printed. SBAR report to be given at bedside with opportunity for questions.
--- NOTE | 2021-03-27 13:55 | NUR ---
CONSULT CARDIOLOGY TACHYCARDIA DR CALI [phone] S/W [facility] OFFICE
--- NOTE | 2021-03-27 13:56 | NUR ---
CONSULT PULMONOLOGY COPD EXAC DR LOCKE, [facility] [phone] S/W [facility]
[2021-03-27] MEDS: guaiFENesin/DEXTROMETHORPHAN 10 ML UDC PO PRN (14:37)
--- NOTE | 2021-03-27 15:00 | NUR ---
HR at 130-140s. Dr. Burleson is called. Metoprolol succinate 50mg is ordered.
[2021-03-27] MEDS ORDERED: METOPROLOL SUCCINATE 50 MG TAB.SR.24H (TOPROL XL) PO ONE (15:15)
[2021-03-27 16:00] VITALS: BP_SYST 138
[2021-03-27] MEDS ORDERED: levalbuterol HCL 0.63 MG/3 ML VIAL.NEB INH PRN (16:00)
--- NOTE | 2021-03-27 16:30 | NUR ---
HR remains high at 130-140s SR. Dr. Burleson is called. No new orders are given.
[2021-03-27 16:37] VITALS: BP_SYST 153
--- NOTE | 2021-03-27 16:40 | NUR ---
Dr. Dale is called about patient's current status. Awaiting call back.
--- NOTE | 2021-03-27 18:28 | NUR ---
Dr. Burleson at bedside. Orders are given.
--- NOTE | 2021-03-27 19:30 | NUR ---
OPENING NOTE RECEIVED REPORT FROM DAY RN. PT IN BED WITH RESPIRATIONS EVEN AND UNLABORED ON 2L NC. NO SIGNS OF DISTRESS NOTED. LAC 20G DISLODGED. IV REMOVED, TIP INTACT. DRESSING APPLIED. PT TOLERATED WELL. BED IN LOWEST AND LOCKED POSITION. SAFETY PRECAUTIONS IN PLACE. CALL LIGHT WITHIN REACH. WILL CONTINUE TO MONITOR.
--- NOTE | 2021-03-27 19:35 | NUR ---
BATHROOM ROUND PT REQUESTING TO WALK TO RESTROOM. SLOW STEADY GAIT WITH ASSIST. PT PLACED ON TOILET. EDUCATED VEHICLE REFINISHER LIGHT TO PRESS WHEN FINISHED. PT VERBALIZED UNDERSTANDING.
--- NOTE | 2021-03-27 19:39 | NUR ---
RADIOLOGY AT BEDSIDE WAITING ON PT TO FINISH USING RESTROOM. PT STATES SHE DOES NOT FEEL GOOD. PT WALKED BACK TO BED. OXYGEN SATURATION AT 89%. NC APPLIED. O2 SAT SLOWLY RISING. RADIOLOGY STATES SHE WILL COME BACK, OR TRY AND TOMORROW. WILL ENDORSE TO DAY RN.
[2021-03-27 20:00] VITALS: BP_SYST 159
--- NOTE | 2021-03-27 20:06 | NUR ---
IV PLACEMENT: # 22 gauge angiocath placed to left forearm. Use of asceptic technique. Opsite placed over site. Blood return noted. Flushed with 10cc of normal saline. No evidence of infiltration noted. Patient tolerated well.
[2021-03-27] MEDS ORDERED: BUDESONIDE/FORMOTEROL 160-4.5 mCg, 6 GM INHALER INH SCH (21:00)
[2021-03-27] MEDS: DIAZEPAM 5 MG TABLET (VALIUM) PO SCH (21:01)
[2021-03-27] MEDS: cefTRIAXone 1 GM IVPB PREMIX 50 ML IV SCH (21:01)
[2021-03-27] MEDS: DOCUSATE SODIUM 100 MG CAPSULE PO SCH (21:01)
[2021-03-27] MEDS: HEPARIN SODIUM,PORCINE 5,000 UNITS/ML VIAL SUBCUT SCH (21:02)
[2021-03-27] MEDS: DILTIAZEM HCL 30 MG TABLET PO SCH (21:52)
[2021-03-28 00:41] VITALS: BP_SYST 164
--- NOTE | 2021-03-28 00:45 | NUR ---
BLOOD PRESSURE TAKEN. REGULAR CUFF USED. PT BP 149/80 ON FRIDA. PT TOLERATED WELL.
[2021-03-28 00:46] VITALS: BP_SYST 149
--- NOTE | 2021-03-28 03:11 | NUR ---
rounds pt laying in bed with eyes closed. respirations even and unlabored on 4L o2 via NC. bed in lowest and locked position. safety precautions in place. will continue to monitor.
--- NOTE | 2021-03-28 05:00 | NUR ---
CLOSING NOTE PT IN BED WITH RESPIRATIONS EVEN AND UNLABORED ON 4L NC. NO SIGNS OF DISTRESS NOTED. RIGHT FA IV 22G INTACT AND RUNNING IVF. BED IN LOWEST AND LOCKED POSITION. SAFETY PRECAUTIONS IN PLACE. CALL LIGHT WITHIN REACH. WILL ENDORSE TO DAY RN.
[2021-03-28] MEDS: DILTIAZEM HCL 30 MG TABLET PO SCH ×3 (05:19→20:13)
[2021-03-28 06:50] LABS: BASOPHILS % (AUTO) 0.5 % (0.0-2.0); EOSINOPHILS # (AUTO) 0.1 K/uL (0.0-0.4); EOSINOPHILS % (AUTO) 0.7 % (0.0-4.0); HEMATOCRIT 38.5 % (36-48); HEMOGLOBIN 11.8 g/dL (12.0-16.0); LYMPHOCYTES # (AUTO) 1.2 K/uL (1.0-5.5); LYMPHOCYTES % (AUTO) 17.7 % (20.5-51.5); MEAN CORPUSCULAR HEMOGLOBIN 28 pg (27-31); MEAN CORPUSCULAR HGB CONC 31 % (32-36); MEAN CORPUSCULAR VOLUME 90 fL (79.0-98.0); MONOCYTES # (AUTO) 0.5 K/uL (0.0-1.0); MONOCYTES % (AUTO) 7.5 % (1.7-9.3); NEUTROPHILS # (AUTO) 5.1 K/uL (1.8-7.7); NEUTROPHILS % (AUTO) 73.6 % (40.0-70.0); PLATELET COUNT (AUTO) 176 K/uL (130-430); RED BLOOD CELL COUNT(AUTO) 4.26 MIL/uL (4.2-6.2); RED CELL DISTRIBUTION WIDTH 17.3 % (9.0-15.0); WHITE BLOOD COUNT (AUTO) 6.9 K/uL (4.8-10.8)
[2021-03-28 07:02] LABS: ANION GAP 1 (5-15); CALCIUM 9.7 mg/dL (8.4-11.0); CHLORIDE 110 mmol/L (98-107); CREATININE 0.48 mg/dL (0.55-1.30); GLUCOSE 113 mg/dL (70-99); POTASSIUM 4.9 mmol/L (3.5-5.1); SODIUM SERUM 149 mmol/L (136-145); UREA NITROGEN, BLOOD 14 mg/dL (8-21)
[2021-03-28] MEDS: METOPROLOL SUCCINATE 50 MG TAB.SR.24H (TOPROL XL) PO SCH (09:00)
[2021-03-28] MEDS: HEPARIN SODIUM,PORCINE 5,000 UNITS/ML VIAL SUBCUT SCH ×2 (09:00→20:16)
--- NOTE | 2021-03-28 10:23 | NUR ---
Nutrition Update : David Scale: 14 noted Pt admitted for Chronic Obstruction Pulmonary disease exacerbation. Diet: Cardiac BMI: 23.2 kg/m2 RD to follow per nutrition care standards.
[2021-03-28] MEDS: DIAZEPAM 5 MG TABLET (VALIUM) PO SCH ×2 (10:43→20:12)
[2021-03-28] MEDS: DOCUSATE SODIUM 100 MG CAPSULE PO SCH ×2 (10:43→20:13)
[2021-03-28] MEDS: LORazepam 2 MG/ML VIAL IVP PRN (11:58)
[2021-03-28 12:02] VITALS: BP_SYST 118
[2021-03-28] MEDS: IPRATROPIUM/ALBUTEROL SULFATE 3 ML AMPUL.NEB (DUONEB) INH PRN (12:22)
[2021-03-28 16:49] VITALS: BP_SYST 144
[2021-03-28] MEDS: ALBUTEROL SULFATE 0.083% 2.5 MG/3 ML VIAL.NEB INH SCH ×2 (19:59→23:53)
[2021-03-28 20:00] VITALS: BP_SYST 141
[2021-03-28] MEDS: BUDESONIDE 0.5 MG/2 ML AMPUL.NEB INH SCH ×2 (20:00→23:52)
[2021-03-28] MEDS: cefTRIAXone 1 GM IVPB PREMIX 50 ML IV SCH (20:12)
[2021-03-29] MEDS: ALBUTEROL SULFATE 0.083% 2.5 MG/3 ML VIAL.NEB INH SCH ×5 (01:06→20:12)
[2021-03-29 01:21] VITALS: BP_SYST 150
--- NOTE | 2021-03-29 02:47 | NUR ---
RECEIVED PT, AWAKE, ALERT, ORIENTED TO NAME, PLACE, AND SITUATION. VERBALIZES PAIN TO HER ANTERIOR CHEST WALL, NON RADIATING. DENIES ANY FEVERS/CHILLS, NO N/V/D. pT ON ROUNG THE COCK BREATHING TREATMENTS PER RT . PT IS COOPERATIVE, WITH BOUTS OF ANXIOUSNESS. pT IS SLEEPING COMFORTABLY IN BED WITH A SATURATION FROM 86-90%. rt HAS SEEN PT, WILL AGAIN REQUEST FOR A BREATHING TREATMENT, PT VSS, AND SKIN INTACT. pT IS AWARE OF SURROUNDINGS, AND OFTEN CALL TO BE CHANGED. wILL CONTINUE TO MONITOR.
[2021-03-29] MEDS: DILTIAZEM HCL 30 MG TABLET PO SCH ×3 (05:51→21:14)
[2021-03-29] MEDS: ACETAMINOPHEN 325 MG TABLET PO PRN (05:52)
[2021-03-29 07:13] LABS: BASOPHILS % (AUTO) 0.2 % (0.0-2.0); EOSINOPHILS % (AUTO) 0.1 % (0.0-4.0); HEMOGLOBIN 10.9 g/dL (12.0-16.0); LYMPHOCYTES # (AUTO) 0.8 K/uL (1.0-5.5); LYMPHOCYTES % (AUTO) 11.7 % (20.5-51.5); MEAN CORPUSCULAR HEMOGLOBIN 28 pg (27-31); MEAN CORPUSCULAR HGB CONC 30 % (32-36); MEAN CORPUSCULAR VOLUME 91 fL (79.0-98.0); MONOCYTES # (AUTO) 0.8 K/uL (0.0-1.0); MONOCYTES % (AUTO) 10.6 % (1.7-9.3); NEUTROPHILS # (AUTO) 5.6 K/uL (1.8-7.7); NEUTROPHILS % (AUTO) 77.4 % (40.0-70.0); PLATELET COUNT (AUTO) 140 K/uL (130-430); RED BLOOD CELL COUNT(AUTO) 3.97 MIL/uL (4.2-6.2); WHITE BLOOD COUNT (AUTO) 7.3 K/uL (4.8-10.8)
[2021-03-29] MEDS: BUDESONIDE 0.5 MG/2 ML AMPUL.NEB INH SCH ×2 (07:23→20:12)
[2021-03-29 07:28] LABS: CALCIUM 9.7 mg/dL (8.4-11.0); CHLORIDE 105 mmol/L (98-107); CREATININE 0.52 mg/dL (0.55-1.30); GLUCOSE 147 mg/dL (70-99); POTASSIUM 4.3 mmol/L (3.5-5.1); SODIUM SERUM 145 mmol/L (136-145); UREA NITROGEN, BLOOD 23 mg/dL (8-21)
[2021-03-29 07:45] LABS: ANION GAP 5 (5-15)
--- NOTE | 2021-03-29 08:00 | NUR ---
OPENING NOTES: PATIENT EATING BREAKFAST. HOB ELEVATED. BREATHING EVEN AND NON LABORED TO O2 AT 4 L/NC. BED LOCKED, ALARM ON AND IN LOWEST POSITION. FALL, SAFETY AND ASPIRATION MEASURES REINFORCED. CALL LIGHT WITHIN REACH.
[2021-03-29 08:01] VITALS: BP_SYST 136
[2021-03-29] MEDS: HEPARIN SODIUM,PORCINE 5,000 UNITS/ML VIAL SUBCUT SCH ×2 (09:19→21:16)
[2021-03-29] MEDS: DIAZEPAM 5 MG TABLET (VALIUM) PO SCH ×2 (09:19→21:14)
[2021-03-29] MEDS: DOCUSATE SODIUM 100 MG CAPSULE PO SCH ×2 (09:20→21:16)
[2021-03-29] MEDS: METOPROLOL SUCCINATE 50 MG TAB.SR.24H (TOPROL XL) PO SCH (09:21)
[2021-03-29 12:41] VITALS: BP_SYST 121
[2021-03-29 16:42] VITALS: BP_SYST 126
--- NOTE | 2021-03-29 18:00 | NUR ---
RN NOTES: PATIENT IS CONFUSED AND AGITATED. PRN ATIVAN GIVEN. NO S/S OF ACUTE DISTRESS NOTED. FALL AND SAFETY MEASURES PROVIDED.
[2021-03-29] MEDS: LORazepam 2 MG/ML VIAL IVP PRN (18:04)
--- NOTE | 2021-03-29 18:59 | NUR ---
CLOSING NOTES: PATIENT EATING DINNER. HOB ELEVATED. BREATHING EVEN AND NON LABORED TO O2 AT 4 L/NC. BED LOCKED, ALARM ON AND IN LOWEST POSITION. FALL, SAFETY AND ASPIRATION MEASURES PROVIDED. CALL LIGHT WITHIN REACH.
[2021-03-29 21:00] VITALS: BP_SYST 137
[2021-03-29] MEDS: cefTRIAXone 1 GM IVPB PREMIX 50 ML IV SCH (21:13)
--- NOTE | 2021-03-29 21:15 | NUR ---
Patient awake FALL Risk frequent wants to climb out of bed BED ALARM is ON Redirect / MONITOR FOR SAFETY .
[2021-03-30 01:12] VITALS: BP_SYST 145
[2021-03-30] MEDS: ALBUTEROL SULFATE 0.083% 2.5 MG/3 ML VIAL.NEB INH SCH ×3 (01:24→22:17)
--- NOTE | 2021-03-30 02:11 | NUR ---
HOURLY ROUNDING patient awake on and off BED ALARM is ON FALL MEASURES IMPLEMENTED & EFFECTIVE .
--- NOTE | 2021-03-30 04:33 | NUR ---
ROBITUSSIN 10 ML PO administer for cough HOB kept elevated continue to monitor .
[2021-03-30] MEDS: guaiFENesin/DEXTROMETHORPHAN 10 ML UDC PO PRN (04:39)
[2021-03-30] MEDS: DILTIAZEM HCL 30 MG TABLET PO SCH ×3 (05:24→21:29)
[2021-03-30 06:27] LABS: BASOPHILS % (AUTO) 0.4 % (0.0-2.0); EOSINOPHILS % (AUTO) 0.4 % (0.0-4.0); HEMATOCRIT 37.4 % (36-48); HEMOGLOBIN 11.5 g/dL (12.0-16.0); LYMPHOCYTES # (AUTO) 1.6 K/uL (1.0-5.5); LYMPHOCYTES % (AUTO) 21.4 % (20.5-51.5); MEAN CORPUSCULAR HEMOGLOBIN 27 pg (27-31); MEAN CORPUSCULAR HGB CONC 31 % (32-36); MEAN CORPUSCULAR VOLUME 90 fL (79.0-98.0); MONOCYTES # (AUTO) 0.7 K/uL (0.0-1.0); MONOCYTES % (AUTO) 9.9 % (1.7-9.3); NEUTROPHILS # (AUTO) 4.9 K/uL (1.8-7.7); NEUTROPHILS % (AUTO) 67.9 % (40.0-70.0); PLATELET COUNT (AUTO) 142 K/uL (130-430); RED BLOOD CELL COUNT(AUTO) 4.23 MIL/uL (4.2-6.2); RED CELL DISTRIBUTION WIDTH 17.6 % (9.0-15.0); WHITE BLOOD COUNT (AUTO) 7.2 K/uL (4.8-10.8)
[2021-03-30 06:51] LABS: ANION GAP 4 (5-15); CALCIUM 10.1 mg/dL (8.4-11.0); CHLORIDE 105 mmol/L (98-107); CREATININE 0.41 mg/dL (0.55-1.30); GLUCOSE 109 mg/dL (70-99); POTASSIUM 3.8 mmol/L (3.5-5.1); SODIUM SERUM 145 mmol/L (136-145); UREA NITROGEN, BLOOD 17 mg/dL (8-21)
--- NOTE | 2021-03-30 07:01 | NUR ---
PHYSICAL THERAPY CO-SIGN The Physical Therapy Progress Notes documented by Canal Driver have been reviewed. Reviewed/Co-Signed by: Carlos Eldridge Documentation Done by: SHELL CARD PTA Addendum: 03/30/21 at 0701 by Carlos Eldridge PT Amended: Links added.
--- NOTE | 2021-03-30 07:15 | NUR ---
OPENING NOTE: RECEIVED PT FROM RN USING SBAR REPORTING. ALL CARE ASSUMED.
[2021-03-30] MEDS: BUDESONIDE 0.5 MG/2 ML AMPUL.NEB INH SCH ×2 (07:58→22:18)
[2021-03-30 08:00] VITALS: BP_SYST 139
[2021-03-30] MEDS: HEPARIN SODIUM,PORCINE 5,000 UNITS/ML VIAL SUBCUT SCH ×2 (09:43→20:16)
[2021-03-30] MEDS: METOPROLOL SUCCINATE 50 MG TAB.SR.24H (TOPROL XL) PO SCH (09:44)
[2021-03-30] MEDS: DOCUSATE SODIUM 100 MG CAPSULE PO SCH ×2 (09:44→20:14)
[2021-03-30] MEDS: DIAZEPAM 5 MG TABLET (VALIUM) PO SCH (09:44)
[2021-03-30 09:45] VITALS: BP_SYST 145
[2021-03-30] MEDS: IPRATROPIUM/ALBUTEROL SULFATE 3 ML AMPUL.NEB (DUONEB) INH PRN (11:12)
--- NOTE | 2021-03-30 11:13 | NUR ---
MARLYS ALCALA WAS CALLED, RE: PT DESATS WHEN TALKING LOUDLY( ALREADY ON 10L). SPOKE TO KARYN.
[2021-03-30 12:00] VITALS: BP_SYST 154
--- NOTE | 2021-03-30 12:00 | NUR ---
rt notes 1120 RT got called by VENU Vines, pt was desaturating 80's on RA. Pt removed O2 (2LNC).Little bit ALOC. RT gave PRN breathing tx to pt. ABG done afterwards. Per ABG results CO2 76.3, PO2 53.0. 1140 Placed pt on Bipap (14/09 bur 18, 50% FIO2) pt saturating 96%. will wait for Dr. Dale's order. will continue to monitor pt. VENU Vines aware.
--- NOTE | 2021-03-30 14:22 | NUR ---
DR ALCALA: DR ALCALA AT BEDSIDE, UPDATED ON PTS STATUS. NEW ORDERS ACKNOWLEDGED AND CARRIED OUT. WILL CONTINUE TO MONITOR.
--- NOTE | 2021-03-30 15:30 | NUR ---
rt notes [address] Hidalgo's order during roundings, Placed pt ON 4 hours and OFF 4 hours. Offloaded pt from bipap, pt back on 2LNC satruating 97%. will continue to monitor pt. VENU Vines aware.
[2021-03-30 16:00] VITALS: BP_SYST 145
--- NOTE | 2021-03-30 18:00 | NUR ---
PT FOUND ATTEMPTING TO EXIT THE BED WITHOUT ASSISTANCE. BUSINESS DEVELOPMENT CONSULTANT TO RESTROOM AFTER AN INCONTINENT EPISODE IN BED. PT ABLE TO AMBULATE WITH ASSISTANCE. TOLERATED WELL.
[2021-03-30] MEDS: PIPERACILLIN/TAZO 3.375/DEX-IS 50 ML IV SCH ×2 (18:55→23:09)
[2021-03-30] MEDS: ACETAMINOPHEN 325 MG TABLET PO PRN (18:56)
--- NOTE | 2021-03-30 19:15 | NUR ---
CLOSING NOTE: REPORT GIVEN TO RN USING SBAR REPORTING. ALL SAFETY PRECAUTIONS ENFORCED.
[2021-03-30 19:20] VITALS: BP_SYST 142
--- NOTE | 2021-03-30 19:20 | NUR ---
INITIAL NOTE AT INITIAL ASSESSMENT, PATIENT IS RESTING IN BED, STABLE, NO SIGNS OF RESPIRATORY DISTRESS. PATIENT VERBALIZES NO PAIN. PLAN OF CARE FOR THE EVENING IS COMMUNICATED WITH THE PATIENT. PATIENT IS UNABLE TO DEMONSTRATE CORRECT USAGE OF CALL LIGHT AT THIS TIME DUE TO COGNITIVE IMPAIRMENT; FREQUENT ROUNDING WILL BE COMPLETED THROUGHOUT THE NIGHT TO MEET ALL PATIENT NEEDS. BED IS LOCKED, ALARMED, AND AT THE LOWEST LEVEL. FALL SAFETY EDUCATION PROVIDED. FALL, SAFETY, ASPIRATION, AND RESPIRATORY PRECAUTIONS WILL BE TAKEN THROUGHOUT THE SHIFT.
[2021-03-31 00:38] VITALS: BP_SYST 144
[2021-03-31] MEDS: ALBUTEROL SULFATE 0.083% 2.5 MG/3 ML VIAL.NEB INH SCH ×3 (01:11→13:28)
[2021-03-31] MEDS: PIPERACILLIN/TAZO 3.375/DEX-IS 50 ML IV SCH ×3 (06:35→17:00)
[2021-03-31] MEDS: DILTIAZEM HCL 30 MG TABLET PO SCH ×2 (06:38→13:36)
--- NOTE | 2021-03-31 06:50 | NUR ---
CLOSING NOTE PATIENT WAS NO LONGER LETHARGIC DURING THE NIGHT, SHE SLEPT WELL THROUGHOUT THE SHIFT, NO SHORTNESS OF BREATH NOTED. AT THIS TIME, PATIENT IS RESTING IN BED, STABLE, NO SIGNS OF RESPIRATORY DISTRESS. CALL LIGHT IS WITHIN REACH. BED IS LOCKED, ALARMED, AND AT THE LOWEST LEVEL. FALL, SAFETY, ASPIRATION, AND RESPIRATORY PRECAUTIONS HAVE BEEN TAKEN THROUGHOUT THE SHIFT. WILL CONTINUE TO MONITOR UNTIL SHIFT REPORT IS GIVEN AT BEDSIDE TO AM NURSE.
[2021-03-31 07:34] LABS: BASOPHILS % (AUTO) 0.3 % (0.0-2.0); EOSINOPHILS % (AUTO) 0.5 % (0.0-4.0); HEMATOCRIT 38.8 % (36-48); HEMOGLOBIN 12.1 g/dL (12.0-16.0); LYMPHOCYTES # (AUTO) 1.1 K/uL (1.0-5.5); LYMPHOCYTES % (AUTO) 17.3 % (20.5-51.5); MEAN CORPUSCULAR HEMOGLOBIN 28 pg (27-31); MEAN CORPUSCULAR HGB CONC 31 % (32-36); MEAN CORPUSCULAR VOLUME 88 fL (79.0-98.0); MONOCYTES # (AUTO) 0.7 K/uL (0.0-1.0); MONOCYTES % (AUTO) 11.2 % (1.7-9.3); NEUTROPHILS # (AUTO) 4.4 K/uL (1.8-7.7); NEUTROPHILS % (AUTO) 70.7 % (40.0-70.0); PLATELET COUNT (AUTO) 131 K/uL (130-430); RED CELL DISTRIBUTION WIDTH 16.8 % (9.0-15.0); WHITE BLOOD COUNT (AUTO) 6.2 K/uL (4.8-10.8)
[2021-03-31] MEDS: BUDESONIDE 0.5 MG/2 ML AMPUL.NEB INH SCH (07:37)
[2021-03-31 08:00] VITALS: BP_SYST 152
[2021-03-31] MEDS: DOCUSATE SODIUM 100 MG CAPSULE PO SCH (08:22)
[2021-03-31] MEDS: METOPROLOL SUCCINATE 50 MG TAB.SR.24H (TOPROL XL) PO SCH (08:22)
[2021-03-31] MEDS: HEPARIN SODIUM,PORCINE 5,000 UNITS/ML VIAL SUBCUT SCH (08:24)
[2021-03-31 10:25] LABS: ANION GAP 5 (5-15); CALCIUM 10.1 mg/dL (8.4-11.0); CHLORIDE 100 mmol/L (98-107); CREATININE 0.45 mg/dL (0.55-1.30); GLUCOSE 125 mg/dL (70-99); SODIUM SERUM 140 mmol/L (136-145); UREA NITROGEN, BLOOD 17 mg/dL (8-21)
[2021-03-31] MEDS ORDERED: CAR30 PO (10:42)
[2021-03-31 12:00] VITALS: BP_SYST 157
[2021-03-31 14:29] VITALS: BP_SYST 157
[2021-03-31 16:00] VITALS: BP_SYST 137
--- NOTE | 2021-04-02 07:26 | NUR ---
PHYSICAL THERAPY CO-SIGN The Physical Therapy Progress Notes documented by Political Analyst have been reviewed. Reviewed/Co-Signed by: Carlos Eldridge Documentation Done by: SHELL CARD PTA Addendum: 04/02/21 at 4127 by Carlos Eldridge PT Amended: Links added.
== END 2021-03-31 19:00 | DRG 193 ==
LOC: SED 08:18 → STU 10:15
PROVIDERS: ADMIT General Practice; ATTEND General Practice
PROC: 5A09357 Assistance with Respiratory Ventilation, Less than 24 Consecutive Hours, Continuous Positive Airway Pressure (ICD-10-PCS; principal; 2021-03-30)
DX: J18.9 Pneumonia, unspecified organism (principal); G93.41 Metabolic encephalopathy; J44.1 Chronic obstructive pulmonary disease with (acute) exacerbation; E87.0 Hyperosmolality and hypernatremia; E46 Unspecified protein-calorie malnutrition; I27.29 Other secondary pulmonary hypertension; I27.20 Pulmonary hypertension, unspecified; R29.6 Repeated falls; F03.90 Unspecified dementia, unspecified severity, without behavioral disturbance, psychotic disturbance, mood disturbance, and anxiety; G62.9 Polyneuropathy, unspecified; Z20.822 Contact with and (suspected) exposure to COVID-19; F17.200 Nicotine dependence, unspecified, uncomplicated; F41.9 Anxiety disorder, unspecified; G89.4 Chronic pain syndrome; I10 Essential (primary) hypertension; I27.81 Cor pulmonale (chronic); R09.02 Hypoxemia; Z88.5 Allergy status to narcotic agent; Z79.899 Other long term (current) drug therapy; Z90.710 Acquired absence of both cervix and uterus; Z91.14 Patient's other noncompliance with medication regimen; Z68.23 Body mass index [BMI] 23.0-23.9, adult
CPT/HCPCS: 36415; 36600; 71045; 71260-TC; 76376; 80048; 80053; 82803-TC; 83036; 83735; 83880; 84484; 85025; 85379; 87081; 93005; 94640; 94660; 94760; 97110-GP; 97116-GP; 97530-GP; 99285; G0378; J0696; J1644; J2060; J2543; J7613; J7614; J7626; Q9967